=== PATIENT | male | born 1945 | race Two or more races ===

== ENCOUNTER 2023-01-01 06:45 | Day surgery (SDC) | payer OTHER ==
[~2023-01-01] VITALS: Ht 182.9 cm; Wt 94.3 kg
[2023-01-01] VITALS (7 sets, daily range): BP systolic 115–175; BP diastolic 69–85; PULSE 57–63; RESP 14–16; TEMP 98; O2SAT 93–95
[~2023-01-01 06:45] MED LIST: ASPI325T4 PO; LOSA25TA15 PO; METF-370 PO
[2023-01-01] MEDS ORDERED: LIDOCAINE 2%HCL (LOCAL ANESTH.) INJ 20ML MDV ONE (07:41)
[2023-01-01] MEDS ORDERED: IODIXANOL 320MG/ML 100ML BTL IV ONE (07:41)
[2023-01-01] MEDS ORDERED: ANGIOMAX 250 MG VIAL IV ONE (07:55)
[2023-01-01] MEDS ORDERED: fentaNYL CITRATE 100 MCG/2 ML VL ONE (07:55)
[2023-01-01] MEDS ORDERED: MIDAZOLAM HCL 2MG/2ML 2ml VIAL (1mg/ml) ONE (07:55)
[2023-01-01] MEDS ORDERED: VERAPAMIL 2.5MG/ML INJ 2ML VIAL IV ONE (07:55)
[2023-01-01] MEDS ORDERED: SODIUM CHL 0.9% 0 ML ONE (07:56)
[2023-01-01] MEDS ORDERED: NITROGLYCERIN 5MG/ML 10ML VIAL IV ONE (08:00)
[2023-01-01] MEDS ORDERED: HEPARIN SODIUM (PORCINE) 5000 UNITS/ML 1ML VIAL ONE (08:34)
== END 2023-01-01 10:45 | disposition home or self-care (01) ==
LOC: CATH 06:45
PROVIDERS: ATTEND Internal Medicine
DX: R94.39 Abnormal result of other cardiovascular function study (principal); R07.9 Chest pain, unspecified; I25.118 Atherosclerotic heart disease of native coronary artery with other forms of angina pectoris; I10 Essential (primary) hypertension; E78.5 Hyperlipidemia, unspecified; Z79.899 Other long term (current) drug therapy
CPT/HCPCS: 93005; 93458; C1725; C1894; J1644; J2250; J3010; J3490; J7030; Q9967; 99152

== ENCOUNTER 2025-02-18 23:18 | Inpatient (IN) | payer OTHER ==
[~2025-02-18] VITALS: Ht 182.9 cm; Wt 94.1 kg
[~2025-02-18 23:18] MED LIST changes: -ASPI325T4 PO; +ASPI325T6 PO; +LOSA-533 PO; -LOSA25TA15 PO
--- NOTE | 2025-02-18 23:39 | ED.PDOC ---
HPI Comments 79 year old male presents to the ED via EMS with a chief compliant of chest pain onset 2 days. Patient states he had been experiencing chest pain for the past 2 days, went to [facility], troponin levels were elevated, last trop was 1.11. Patient states he was experiencing chest pain,poor appetite, shortness of breath. Denies fever, chills, cough, nausea, vomiting, diarrhea, headache, dizziness, blurred vision. No other symptoms or modifying factors present at this time. Time Seen by MD: 23:30 Reviewed Notes: Medications, Allergies Allergies: Uncoded Allergies: NONE (Allergy, Unknown, 12/29/22) Home Meds Reported Medications Losartan Potassium (Losartan Potassium) 25 Mg Tab, 25 MG PO BID for htn for 30 Days, MG 12/29/22 Aspirin (Aspirin) 325 Mg Tab, 325 MG PO DAILY, MG 12/29/22 Metformin Hydrochloride (Metformin Hcl) 500 Mg Tab, 500 MG PO IBID for DIABETES for 30 Days, MG 12/29/22 Information Source: Patient, Transfer Record, Emergency Med Personnel Mode of Arrival: EMS Severity: Moderate Timing: Hours Duration: Since onset Prehospital treatment: None Location: Chest (L) Radiation: No Radiation Quality: Sharp Onset: At Rest Modifying Factors: Nothing Associated Signs and Symptoms: SOB Past Medical History PAST MEDICAL HISTORY: Denies Surgical History: Denies all surgeries Family History Family History: Reviewed,noncontributory to illness, No family hx of Cancer, No family hx of DM, No family hx of Heart roby, No family hx of HTN, No family hx ofKidney roby, No family hx of Liver roby, No family hx of Lung roby, No family hx of Stroke Social History Smoker: Non-Smoker Alcohol: Denies ETOH Use Drugs: Denies Drug Use Lives In: Home Constitutional: denies: chills, diaphoresis, fatigue, fever, malaise, sweats, weakness, others EENTM: denies: blurred vision, double vision, ear bleeding, ear discharge, ear drainage, ear pain, ear ringing, eye pain, eye redness, hearing loss, mouth pain, mouth swelling, nasal discharge, nose bleeding, nose congestion, nose pain, photophobia, tearing, throat pain, throat swelling, voice changes, others Respiratory: denies: cough, hemoptysis, orthopnea, SOB at rest, shortness of breath, SOB with excertion, stridor, wheezing, others Cardiovascular: reports: chest pain; denies: dizzy spells, diaphoresis, Dyspnea on exertion, edema, irregular heart beat, left arm pain, lightheadedness, palpitations, PND, syncope, others Gastrointestinal: denies: abdomen distended, abdominal pain, blood streaked bowels, constipated, diarrhea, dysphagia, difficulty swallowing, hematemesis, melena, nausea, poor appetite, poor fluid intake, rectal bleeding, rectal pain, vomiting, others Genitourinary: denies: burning, dysuria, flank pain, frequency, hematuria, incontinence, penile discharge, penile sore, pain, testicle pain, testicle swelling, urgency, others Neurological: denies: dizziness, fainting, headache, left sided numbness, left sided weakness, numbness, paresthesia, pre-existing deficit, right sided numbness, right sided weakness, seizure, speech problems, tingling, tremors, weakness, others Musculoskeletal: denies: back pain, gout, joint pain, joint swelling, muscle pain, muscle stiffness, neck pain, others Integumetry: denies: bruises, change in color, change in hair/nails, dryness, laceration, lesions, lumps, rash, wounds, others Allergic/Immunocompromised: denies: Difficulty Healing, Frequent Infections, Hives, Itching, others Hematologic/Lymphatic: denies: anemia, blood clots, easy bleeding, easy bruising, swollen glands, others Endocrine: denies: excessive hunger, excessive sweating, excessive thirst, excessive urination, flushing, intolerance to cold, intolerance to heat, unexplained weight gain, unexplained weight loss, others Psychiatric: denies: anxiety, bipolar disorder, depression, hopeless, panic disorder, schizophrenia, sleepless, suicidal, others All Other Systems: Reviewed and Negative Physical Exam General Appearance: Normal HEENT: Normal ENT Inspection, Pharynx Normal, TMs Normal Neck: Full Range of Motion, Non-Tender, Normal, Normal Inspection Respiratory: Chest Non-Tender, Lungs Clear, No Accessory Muscle Use, No Respiratory Distress, Normal Breath Sounds Cardiovascular: No Edema, No JVD, No Murmur, No Gallop, Normal Peripheral Pulses, Regular Rate/Rhythm Breast Exam: Deferred Gastrointestinal: No Organomegaly, Non Tender, No Pulsatile Mass, Normal Bowel Sounds, Soft Genitalia: Deferred Pelvic: Deferred Rectal: Deferred Extremities: No calf tenderness, Normal capillary refill, Normal inspection, Normal range of motion, Non-tender, No pedal edema Musculoskeletal : Apperance: Normal Neurologic: Alert, attorney II-XII nml as Tested, No Motor Deficits, Normal Affect, Normal Mood, No Sensory Deficits Cerebellar Function: Normal Reflexes: Normal Skin: Dry, Normal Color, Warm Lymphatic: No Adenopathy Was a procedure done? Was a procedure done?: No CP Differential Dx Differential Diagnosis: A-fib, A-Flutter, Angina, Electrolyte Disorder, Heart Failure, Hyperthyroidism, Hyperventilation, Hypoxia, MAT, ME, PAC's, Ventricular Dysrhythmia, V-Fib, V-Tach, Other X-Ray, Labs, Meds, VS Vital Signs Date Time Temp Pulse Resp B/P (MAP) Pulse Ox O2 Delivery O2 Flow Rate FiO2 02/19/25 00:30 Room Air* 0 21 02/19/25 00:30 98.4 70 17 138/74 (95) 95 98.4 02/18/25 23:59 70 02/18/25 23:18 98.4 14 18 113/64 98 98.4 Lab Test 02/19/25 02:29 02/19/25 00:29 02/18/25 23:55 02/18/25 23:27 Range/Units Troponin I High Sensitivity Pending 119 *H 129 *H </=54 ng/L Urine Color Light-orange Yellow Urine Clarity Turbid H Clear Urine pH 5.5 5.0-9.0 Urine Specific [place] 1.023 1.001-1.035 Urine Protein 1+ H Negative Urine Ketones Negative Negative Urine Blood 3+ H Negative /uL Urine Nitrite Negative Negative Urine Bilirubin Negative Negative Urine Urobilinogen Normal Negative mg/dL Urine Leukocyte Esterase 2+ Negative /uL Urine RBC 1 0 - 3 /hpf Urine Microscopic WBC 114 H 0-3 /HPF Urine Squamous Epithelial Cells Few <5 /hpf Urine Bacteria Many H None Seen /hpf Urine Mucus Few None Seen Urine Glucose Normal Normal mg/dL White Blood Count 7.5 4.4-10.8 10^3/uL Red Blood Count 5.52 4.5-5.90 10^6/uL Hemoglobin 14.0 13.5-17.5 g/dL Hematocrit 42.7 41.0-53.0 % Mean Corpuscular Volume 77.2 L 80.0-100.0 fL Mean Corpuscular Hemoglobin 25.3 L 28.0-32.0 pg Mean Corpuscular Hemoglobin Concent 32.7 32.0-36.0 g/dL Red Cell Distribution Width 16.1 H 11.8-14.3 % Platelet Count 133 L 140-450 10^3/uL Mean Platelet Volume 9.4 6.9-10.8 fL Neutrophils (%) (Auto) 88.6 H 37.0-80.0 % Lymphocytes (%) (Auto) 5.6 L 10.0-50.0 % Monocytes (%) (Auto) 5.7 0.0-12.0 % Eosinophils (%) (Auto) 0.0 0.0-7.0 % Basophils (%) (Auto) 0.1 0.0-2.0 % Neutrophils # (Auto) 6.7 1.6-8.6 10 ^3/uL Lymphocytes # (Auto) 0.4 0.4-5.4 10 ^3/uL Monocytes # (Auto) 0.4 0-1.3 10 ^3/uL Eosinophils # (Auto) 0 0-0.8 10 ^3/uL Basophils # (Auto) 0 0-0.2 10 ^3/uL Nucleated Red Blood Cells 0.0 % Sodium Level 139 136-145 mmol/L Potassium Level 4.1 3.5-5.1 mmol/L Chloride Level 104 98-107 mmol/L Carbon Dioxide Level 27 20-31 mmol/L Anion Gap 8 5-15 Blood Urea Nitrogen 15 9-23 mg/dL Creatinine 1.01 0.700-1.30 mg/dL Glomerular Filtration Rate Calc 76 >90 mL/min BUN/Creatinine Ratio 14.9 10.0-20.0 Serum Glucose 130 H 74-106 mg/dL Lactic Acid Level 1.3 0.4-2.0 mmol/L Calcium Level 9.4 8.7-10.4 mg/dL Total Bilirubin 0.4 0.2-1.0 mg/dL Aspartate Amino Transferase (AST) 179 H 13-40 U/L Alanine Aminotransferase (ALT) 41 H 7-40 U/L Alkaline Phosphatase 86 46-116 U/L Total Protein 7.2 5.7-8.2 g/dL Albumin 4.1 3.2-4.8 g/dL Time of 1ST Reevaluation: 00:00 Reevaluation 1ST: Unchanged Patient Education/Counseling: Diagnosis, Treatment, Prognosis Family Education/Counseling: No Family Present SEPSIS Sepsis Screen Physician Orders Blood Culture (02/18/25 23:26) Chest Portable (02/18/25 23:26) Troponin-I Hs (02/19/25 02:26) Ceftriaxone Ivpb Rocephin (02/19/25 03:00) Vital Signs Date Time Temp Pulse Resp B/P (MAP) Pulse Ox O2 Delivery O2 Flow Rate FiO2 02/19/25 00:30 Room Air* 0 21 02/19/25 00:30 98.4 70 17 138/74 (95) 95 98.4 02/18/25 23:59 70 02/18/25 23:18 98.4 14 18 113/64 98 98.4 Laboratory Tests Test 02/18/25 23:27 Lactic Acid Level 1.3 mmol/L (0.4-2.0) White Blood Count 7.5 10^3/uL (4.4-10.8) Departure 1 Departure Time of Disposition: 02:48 Impression: Primary Impression: Chest pain Additional Impressions: Generalized weakness Urinary tract infection Acute coronary syndrome Disposition: ADMITTED INPATIENT Admit to: [facility] Condition: Guarded Discharged With: Self Comments 79-year-old male transferred from [facility] due to elevated troponin. I reviewed his lab results. His troponin is elevated. It looks like he has a urine infection. Patient received aspirin in [place]. I ordered some Rocephin antibiotics. Patient will need to be admitted for supportive care and further workup. Critical Care Note Critical Care Time?: Yes (35 min-critical care time only) Critical care comment: Total critical care time: Approximately 36 minutes Due to a high probability of clinically significant, life threatening deterioration, the patient required my highest level of preparedness to intervene emergently and I personally spent this critical care time directly and personally managing the patient. This critical care time included obtaining a history; examining the patient; pulse oximetry; ordering and review of studies; arranging urgent treatment with development of a management plan; evaluation of patient's response to treatment; frequent reassessment; and, discussions with other providers. This critical care time was performed to assess and manage the high probability of imminent, life-threatening deterioration that could result in multi-organ failure. It was exclusive of separately billable procedures and treating other patients. Stability Stability form required: No Heart Score Heart Score: Heart Score Response (Comments) Value History Highly Suspicious 2 EKG Repolarization Disturb 1 Age >65 2 Risk Factors >3 or Hx ASHD 2 Troponin >3 x's Normal limit 2 Total 9 I personally scribed for NEGRA ROCHA MD ([email or web address]) on 02/18/25 at 23:39. Electronically submitted by Kenna Thomas ([email or web address]). NEGRA ROCHA MD Feb 18, 2025 23:39
[2025-02-18 23:57] LABS: Hematocrit 42.7 % (41.0-53.0); Hemoglobin 14.0 g/dL (13.5-17.5); Mean Corpuscular Hemoglobin 25.3 pg (28.0-32.0); Mean Corpuscular Volume 77.2 fL (80.0-100.0); Nucleated Red Blood Cells % 0.0 %
[2025-02-19] VITALS (8 sets, daily range): BP systolic 106–135; BP diastolic 74–83; PULSE 68–82; RESP 17–18; TEMP 97.7–97.9; O2SAT 95–96
--- NOTE | 2025-02-19 00:01 | ECG ---
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
[2025-02-19 00:11] LABS: Albumin 4.1 g/dL (3.2-4.8); Alkaline Phosphatase 86 U/L (46-116); Anion Gap 8 (5-15); BUN/Creatinine Ratio 14.9 (10.0-20.0); Bilirubin, Total 0.4 mg/dL (0.2-1.0); Blood Urea Nitrogen 15 mg/dL (9-23); Calcium 9.4 mg/dL (8.7-10.4); Carbon Dioxide 27 mmol/L (20-31); Chloride 104 mmol/L (98-107); Potassium 4.1 mmol/L (3.5-5.1); Sodium 139 mmol/L (136-145); Total Protein 7.2 g/dL (5.7-8.2)
[2025-02-19 00:13] LABS: Alanine Aminotransferase 41 U/L (7-40); Glucose 130 mg/dL (74-106)
[2025-02-19 01:16] LABS: Urine Protein, UAD 1+ (Negative)
--- NOTE | 2025-02-19 01:59 | DVH ---
CHEST RADIOGRAPH Indication: SOB Technique: Single frontal view of the chest was obtained COMPARISON: XR CHEST 1 VIEW on DOS: 02/18/25, CT CHEST WO/W on DOS: 12/23/24, XR CHEST 2 VIEWS on DOS: 07/15/24, XR CHEST 2 VIEWS on DOS: 02/09/23, CH-CHEST 2V on DOS: 06/17/19 FINDINGS: Lungs and pleural spaces are clear. Cardiac silhouette and butch are within normal limits. Bones and soft tissues demonstrate no significant abnormality. IMPRESSION: No acute disease.
[2025-02-19] MEDS ORDERED: HEPARIN SODIUM (PORCINE) 5000 UNITS/ML 1ML VIAL IV ONE (04:00)
[2025-02-19] MEDS ORDERED: HEPARIN DRIP/D5W 100UNITS/ML 250 ML IV SCH (04:00)
[2025-02-19] MEDS ORDERED: NITROGLYCERIN 0.4 MG SL TAB SL PRN (04:00)
[2025-02-19] MEDS ORDERED: HYDROcodone-ACET 5/325MG TAB PO PRN (04:00)
[2025-02-19] MEDS ORDERED: ONDANSETRON HCL 4 MG/2 ML VIAL IV PRN (04:00)
[2025-02-19] MEDS ORDERED: MORPHINE SULFATE INJ 2 MG/ml SYRG IV PRN (04:00)
[2025-02-19] MEDS: NITROGLYCERIN 0.4 MG SL TAB SL ONE (04:03)
[2025-02-19] MEDS: MORPHINE SULFATE 4 MG/ML SYR/VIAL IV ONE (04:04)
--- NOTE | 2025-02-19 04:12 | DVHHP2 ---
Admitting Diagnosis: NSTEMI History of Present Illness History Source: Patient Exam Limitations: No limitations HPI Mr. Gerardo Elise is a 79 year old male with a history of hypertension, DM type 2 who presents as a transfer from [facility] with a chief complaint of chest pain onset 2 days. Patient states he had been initially experiencing generalized weakness , loss of appetite and intermittent right side chest pain radiating to right shoulder for the past 2 days, reports he went to [facility], troponin levels were elevated, last trop was 1.11. Patient endorses mild exertional dyspnea. Denies chest pain, dyspnea, fever, chills, cough, nausea, vomiting, diarrhea, headache, dizziness, blurred vision. No other symptoms or modifying factors present at this time. Patient admitted for further evaluation. Home Meds Reported Medications Bisoprolol Fumarate (Bisoprolol Fumarate) 5 Mg Tab, 10 MG PO DAILY, TAB 02/19/25 Finasteride (Finasteride) 5 Mg Tab, 1 TAB PO DAILY, #30 TAB 11 Refills 02/19/25 Donepezil Hydrochloride (Aricept) 5 Mg Tab, 5 MG PO, TAB 02/19/25 Tamsulosin Hcl (Flomax) 0.4 Mg Cap, 1 CAP PO DAILY, #30 CAP 11 Refills 02/19/25 Rosuvastatin Calcium (Crestor) 5 Mg Tab, 1 TAB PO DAILY, #30 TAB 5 Refills 02/19/25 Albuterol Sulfate (VENTOLIN MDI) 90 Mcg Ih, 90 MCG IN, INHALER 02/19/25 Metformin HCl (Metformin Hydrochloride) 1,000 Mg Tab, 1000 MG PO BID, TAB 02/19/25 Losartan Potassium (Cozaar) 100 Mg Tab, 1 TAB PO DAILY, #30 TAB 5 Refills 02/19/25 Loratadine (Claritin) 10 Mg Tab, 1 TAB PO DAILY, #30 TAB 5 Refills 02/19/25 Losartan Potassium (Losartan Potassium) 25 Mg Tab, 25 MG PO BID for htn for 30 Days, MG 12/29/22 Aspirin (Aspirin) 325 Mg Tab, 325 MG PO DAILY, MG 12/29/22 Metformin Hydrochloride (Metformin Hcl) 500 Mg Tab, 500 MG PO IBID for DIABETES for 30 Days, MG 12/29/22 Past Medical History Cardiac: HTN Pulmonary: No pertinent Hx Central Nervous System: No pertinent Hx GI: No pertinent Hx Hemotology/Oncology: No pertinent Hx Hepatobiliary: No pertinent Hx Psychiatric: No pertinent Hx Musculoskeletal: No pertinent Hx Rheumotologic: No pertinent Hx Infectious Disease: No peritnent Hx ENT: No pertinent Hx Renal/: No pertinent Hx Endocrine: NIDDM Dermatology: No pertinent Hx Smoker: No Hx (Negative) Alocohol: None Drugs: None Lives with: With family Domestic Violence: Neg Review of Systems Constitutional: Weakness (generalized ) Ears, Nose, & Throat: No symptom reported Eyes: No symptom reported Pulmonary/Respiratory: Dyspnea Cardiovascular: Chest Pain Gastrointestinal: No symptom reported Genitourinary: No symptom reported Musculoskeletal: No symptom reported Skin: No symptom reported Psychiatric: No symptom reported Endocrine: No symptom reported Hemotologic/Lymphatic: No symptom reported H&P Exam Vital Signs Vital Signs Date Time Temp Pulse Resp B/P (MAP) Pulse Ox O2 Delivery O2 Flow Rate FiO2 02/19/25 04:04 74 12 129/71 02/19/25 02:00 94 02/19/25 00:30 Room Air* 0 21 02/19/25 00:30 98.4 98.4 General Appeara: Well developed, Well nourished, Normal Appearance Head Exam: Normal inspection Neck Exam: Normal inspection, Non-tender, Normal alignment Eye Exam: bilateral eye Normal inspection, bilateral eye PERRL, bilateral eye EOMI Ear Exam: bilateral ear Auricle normal Nasal Exam: Normal inspection Mouth: Normal Inspection Pulmonary/Respiratory: Normal inspection, Normal breath sounds, Chest non- tender, Lungs clear Cardiovascular/Chest: Normal inspection, Regular rate, Normal Rhythm Peripheral Pulses: 2+ dorsalis pedis (R), 2+ dorsalis pedis (L), 2+ Radial (R), 2+ Radial (L) Abdominal Exam: Normal bowel sounds, Soft, No tenderness Legs: bilateral leg non-tender, bilateral leg normal inspection, bilateral leg normal range of motion RADIOLOGICAL TECHNICIAN Exam: Normal hearing, Normal speech, PERRL Motor/Sensory: Normal sensory function, Normal motor function Neuro/Mental St: Alert, Oriented Appearance: Appropriate appearance, Appropriate insight Eye contact/ Speech: Cooperative, Good eye contact, Normal speech Thoughts/Psych: Normal thought pattern Skin Exam: Normal inspection, Normal color, Warm/dry SEPSIS Sepsis Screen Date sepsis recognized/suspect: Feb 19, 2025 Time Sepsis recognized/suspect: 0030 Recent Procedure: No On Antibiotic Therapy: No Respiratory Rate >20: No Heart Rate >90: No Temp<36 C (96.8 F) or >38.3 C: No SBP <90 or MAP <65 mmHG: No New Acute Mental Status Change: No Is the patient on CPAP, BIPAP,: No Physician Orders Blood Culture (02/18/25 23:26) Chest Portable (02/18/25 23:26) Platelet Monitoring (02/19/25 03:55) Heparin Per Standardized Proce (02/19/25 03:55) Discontinue All Im Injections (02/19/25 03:55) PTPTT (02/19/25 03:55) Complete Blood Count (02/19/25 03:55) Heparin Sodium (Porcine) (02/19/25 04:00) Heparin Drip/D5w 100units/Ml (02/19/25 04:00) Stat Ekg For Chest Pain (02/19/25 03:55) Ondansetron Hcl (Zofran) (02/19/25 04:00) Hydrocodone-Acet 5/325mg Tab (Gepp 5/32 (02/19/25 04:00) Acetaminophen Tablet (Tylenol Tablet) (02/19/25 04:00) Pantoprazole (Protonix) (02/19/25 10:00) Atorvastatin (Lipitor) (02/19/25 22:00) Aspirin Tablet (02/19/25 10:00) Ceftriaxone 1gm/50ml (Rocephin) (02/19/25 10:00) Admit (02/19/25 03:55) * Cardiology Consult (02/19/25 03:55) Echo 2d Mode Cardiac Dop (02/19/25 03:55) Comprehensive Metabolic Panel (02/20/25 05:00) Comprehensive Metabolic Panel (02/21/25 05:00) Comprehensive Metabolic Panel (02/22/25 05:00) Complete Blood Count (02/20/25 05:00) Complete Blood Count (02/21/25 05:00) Complete Blood Count (02/22/25 05:00) Nitroglycerin Sublingual (Ntrostat Subli (02/19/25 04:00) Morphine Sulfate Injection (02/19/25 04:00) Stat Ekg For Chest Pain (02/19/25 03:55) Notify Of Changes From Base (02/19/25 03:55) Bad Credit Collector For 24 Hours (02/19/25 03:55) Emergency Dysrhythmia Protocol (02/19/25 03:55) Rhythm Strips Once Every Shift (02/19/25 03:55) Oxygen By Nasal Cannula (02/19/25 03:55) Troponin-I Hs (02/19/25 06:00) Troponin-I Hs (02/19/25 14:00) Troponin-I Hs (02/19/25 22:00) Vital Signs Date Time Temp Pulse Resp B/P (MAP) Pulse Ox O2 Delivery O2 Flow Rate FiO2 02/19/25 04:04 74 12 129/71 02/19/25 04:03 129/71 02/19/25 02:00 76 17 130/61 (84) 94 02/19/25 00:30 Room Air* 0 21 02/19/25 00:30 98.4 70 17 138/74 (95) 95 98.4 02/18/25 23:59 70 02/18/25 23:18 98.4 14 18 113/64 98 98.4 Laboratory Tests Test 02/18/25 23:27 Lactic Acid Level 1.3 mmol/L (0.4-2.0) White Blood Count 7.5 10^3/uL (4.4-10.8) Medications Medications Dose Ordered Sig/Ann Route Start Time Stop Time Status Last Admin Dose Admin Ceftriaxone Sodium 50 ml @ 100 mls/hr ONCE ONCE IV 02/19/25 03:00 02/19/25 03:29 DC 02/19/25 03:14 100 MLS/HR Morphine Sulfate 4 mg ONCE ONCE IV 02/19/25 04:00 02/19/25 04:01 DC 02/19/25 04:04 4 MG Nitroglycerin 0.4 mg ONCE ONCE SL 02/19/25 04:00 02/19/25 04:01 DC 02/19/25 04:03 0.4 MG Labs/Xrays Labs Test 02/19/25 02:29 02/18/25 23:55 02/18/25 23:27 Range/Units Troponin I High Sensitivity 114 *H </=54 ng/L Urine Color Light-orange Yellow Urine Clarity Turbid H Clear Urine pH 5.5 5.0-9.0 Urine Specific [place] 1.023 1.001-1.035 Urine Protein 1+ H Negative Urine Ketones Negative Negative Urine Blood 3+ H Negative /uL Urine Nitrite Negative Negative Urine Bilirubin Negative Negative Urine Urobilinogen Normal Negative mg/dL Urine Leukocyte Esterase 2+ Negative /uL Urine RBC 1 0 - 3 /hpf Urine Microscopic WBC 114 H 0-3 /HPF Urine Squamous Epithelial Cells Few <5 /hpf Urine Bacteria Many H None Seen /hpf Urine Mucus Few None Seen Urine Glucose Normal Normal mg/dL White Blood Count 7.5 4.4-10.8 10^3/uL Red Blood Count 5.52 4.5-5.90 10^6/uL Hemoglobin 14.0 13.5-17.5 g/dL Hematocrit 42.7 41.0-53.0 % Mean Corpuscular Volume 77.2 L 80.0-100.0 fL Mean Corpuscular Hemoglobin 25.3 L 28.0-32.0 pg Mean Corpuscular Hemoglobin Concent 32.7 32.0-36.0 g/dL Red Cell Distribution Width 16.1 H 11.8-14.3 % Platelet Count 133 L 140-450 10^3/uL Mean Platelet Volume 9.4 6.9-10.8 fL Neutrophils (%) (Auto) 88.6 H 37.0-80.0 % Lymphocytes (%) (Auto) 5.6 L 10.0-50.0 % Monocytes (%) (Auto) 5.7 0.0-12.0 % Eosinophils (%) (Auto) 0.0 0.0-7.0 % Basophils (%) (Auto) 0.1 0.0-2.0 % Neutrophils # (Auto) 6.7 1.6-8.6 10 ^3/uL Lymphocytes # (Auto) 0.4 0.4-5.4 10 ^3/uL Monocytes # (Auto) 0.4 0-1.3 10 ^3/uL Eosinophils # (Auto) 0 0-0.8 10 ^3/uL Basophils # (Auto) 0 0-0.2 10 ^3/uL Nucleated Red Blood Cells 0.0 % Sodium Level 139 136-145 mmol/L Potassium Level 4.1 3.5-5.1 mmol/L Chloride Level 104 98-107 mmol/L Carbon Dioxide Level 27 20-31 mmol/L Anion Gap 8 5-15 Blood Urea Nitrogen 15 9-23 mg/dL Creatinine 1.01 0.700-1.30 mg/dL Glomerular Filtration Rate Calc 76 >90 mL/min BUN/Creatinine Ratio 14.9 10.0-20.0 Serum Glucose 130 H 74-106 mg/dL Lactic Acid Level 1.3 0.4-2.0 mmol/L Calcium Level 9.4 8.7-10.4 mg/dL Total Bilirubin 0.4 0.2-1.0 mg/dL Aspartate Amino Transferase (AST) 179 H 13-40 U/L Alanine Aminotransferase (ALT) 41 H 7-40 U/L Alkaline Phosphatase 86 46-116 U/L Total Protein 7.2 5.7-8.2 g/dL Albumin 4.1 3.2-4.8 g/dL Assessment/Plan Problem List: (1) NSTEMI (non-ST elevated myocardial infarction) (2) Acute coronary syndrome (3) Chest pain (4) Urinary tract infection Plan This is a 79 yo male with known history of hypertension, DM type 2 who presents to the hospital with chest pain , patient is a transfer from [facility] for elevated troponin levels, patient found to have 1. Chest pain r/o ACS 2. Elevated troponin 3. Urinary tract infection 4. Transaminitis 5. Hypertension 6. DM type 2 Plan Admit Telemetry Cardiology consultation, 2D echocardiogram, serial troponin levels, ASA, Statin Lovenox 1mg/kg SC every 12 hours IV antibiotic Ceftriaxone, urine culture, BC x2 Monitor CMP , CBC, PTT Glucose monitoring ac & hs coverage with low dose insulin sliding scale PT evaluation Discussed all above with patient who verbalizes agreement and understanding of care plan. All questions were answered. Discussed with supervising MD. Plan discussed with: Patient, Other Code Visit Code Visit Total Time (mins): 45 Additional Comments Additional Comments Additional Comments 79-year-old male with a known history of diabetes mellitus type 2, hypertension who presented to the hospital at [facility] with a right-sided chest pain generalized weakness loss of appetite and lethargic, blood in the urine found to have 1. Elevated troponin rule out acute OR 2. Generalized weakness/lethargy/loss of appetite with a subjective complaint of blood in the urine suspected UTI rule out any urinary bladder/renal mass 3. Acute cystitis with hematuria 5. Diabetes mellitus type 2 6. Transaminitis -aspirin, statin, 2D echo cardiology consultation IV antibiotics, follow up urine culture, follow up CT abdomen and pelvis to rule out any urinary bladder mass. MIRANDA PHILLIPS Feb 19, 2025 04:12 DEEPA PEREZ MD Feb 19, 2025 13:32
[2025-02-19 04:38] LABS: INR 1.17 (0.9-1.15); Partial Thromboplastin Time 25.1 SEC (24.5-34.5); Prothrombin Time 12.2 sec (9.3-11.8)
[2025-02-19 04:48] LABS: Triglycerides 73 mg/dL (< 150)
[2025-02-19 04:50] LABS: Cholesterol 150 mg/dL (< 200); HDL Cholesterol 46 mg/dL (40-59)
[2025-02-19] MEDS: ENOXAPARIN SOD 100 MG/1 ML SYRINGE SC SCH (04:51)
[2025-02-19] MEDS ORDERED: DEXTROSE (50%) 50ML SYRG IV PRN (05:45)
[2025-02-19] MEDS: InsuLIN REG 1unit/0.01ml Soln (100units/ml) SC SCH (06:11)
[2025-02-19] MEDS: ACCU-CHEK COMFORT CURVE STRIP VI SCH (06:12)
[2025-02-19 07:38] LABS: Triglycerides 74 mg/dL (< 150)
[2025-02-19 07:40] LABS: Cholesterol 149 mg/dL (< 200); HDL Cholesterol 46 mg/dL (40-59)
[2025-02-19] MEDS: PANTOPRAZOLE 40 MG/10 ML VIAL INJ IV SCH (09:46)
[2025-02-19] MEDS ORDERED: LORA-622 PO (10:17)
[2025-02-19] MEDS ORDERED: LOSA100T14 PO (10:18)
[2025-02-19] MEDS ORDERED: ALBUAER3 IN (10:25)
[2025-02-19] MEDS ORDERED: METF-929 PO (10:25)
[2025-02-19] MEDS ORDERED: ROSU5TAB5 PO (10:37)
[2025-02-19] MEDS ORDERED: DONE5TAB11 PO (10:41)
[2025-02-19] MEDS ORDERED: TAMS-35 PO (10:41)
[2025-02-19] MEDS ORDERED: FINA5TAB4 PO (10:43)
[2025-02-19] MEDS ORDERED: BISO5TAB44 PO (10:48)
--- NOTE | 2025-02-19 14:31 | DVH ---
EXAM: CT CT AB PEL WO CON-NO ORAL OR IV INDICATION: Hematuria TECHNIQUE: Volumetric multidetector CT images of the abdomen and pelvis were obtained without contrast. All CT scans at this facility use dose modulation, iterative reconstruction, and/or weight based dosing when appropriate to reduce radiation dose to as low as reasonably achievable. COMPARISON: CT CHEST WO/W on DOS: 12/23/24 FINDINGS: [LOWER CHEST]: The partially visualized lung bases are clear without a pleural effusion. The cardiac size is normal without pericardial effusion. calcific granulomas in bilateral lower lobes. [LIVER]: Liver calcifications. [GALLBLADDER AND BILIARY TREE]: No cholelithiasis. [SPLEEN]: Calcifications, which may be related to antecedent granulomatous infection. [PANCREAS]: Unremarkable. 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 [KIDNEYS]: No hydronephrosis. No nephroureterolithiasis. Benign appearing renal cysts, compatible with Bosniak type I cyst. No imaging follow-up required. [BLADDER]: Circumferential bladder wall thickening, which may be seen in the setting of acute versus chronic cystitis and correlate with urinalysis. [REPRODUCTIVE ORGANS]: Unremarkable. [BOWEL/MESENTERY]: Stomach is normal. No CT evidence of bowel obstruction. [id number] stool burden. Correlate for constipation. [ASCITES]: Absent [LYMPHADENOPATHY]: No pathologically enlarged lymph nodes by CT size criteria [VASCULATURE]: Infrarenal abdominal aortic aneurysm measuring up to 4.4 cm. Prominence of bilateral common iliac arteries measuring up to 1.9 of the right and 1.7 cm small in the left. [ABDOMINAL WALL]: Small fat containing left inguinal hernia [MUSCULOSKELETAL]: No acute fracture or aggressive focal osseous lesion. Multifocal degenerative change of the visualized spine. IMPRESSION: 1. No hydronephrosis or nephroureterolithiasis. 2. Circumferential bladder wall thickening and correlate with urinalysis for underlying acute versus chronic cystitis. 3. Infrarenal abdominal aortic aneurysm measuring up to 4.4 cm.
[2025-02-19] MEDS: ATORVASTATIN 20 MG TAB PO SCH (22:02)
[2025-02-20] VITALS (8 sets, daily range): BP systolic 123–151; BP diastolic 78–91; PULSE 71–91; RESP 16–19; TEMP 97.6–98.4; O2SAT 93–97
[2025-02-20] MEDS: ACETAMINOPHEN 325 MG TAB PO PRN (05:57)
[2025-02-20 06:23] LABS: Hematocrit 42.6 % (41.0-53.0); Hemoglobin 14.1 g/dL (13.5-17.5); Mean Corpuscular Hemoglobin 25.5 pg (28.0-32.0); Mean Corpuscular Volume 76.7 fL (80.0-100.0); Nucleated Red Blood Cells % 0.2 %
[2025-02-20 06:38] LABS: Albumin 3.9 g/dL (3.2-4.8); Alkaline Phosphatase 81 U/L (46-116); Anion Gap 9 (5-15); BUN/Creatinine Ratio 16.5 (10.0-20.0); Blood Urea Nitrogen 17 mg/dL (9-23); Calcium 8.9 mg/dL (8.7-10.4); Carbon Dioxide 30 mmol/L (20-31); Chloride 104 mmol/L (98-107); Potassium 3.7 mmol/L (3.5-5.1); Sodium 143 mmol/L (136-145); Total Protein 7.1 g/dL (5.7-8.2)
[2025-02-20 06:39] LABS: Bilirubin, Total 0.4 mg/dL (0.2-1.0)
[2025-02-20 06:40] LABS: Alanine Aminotransferase 67 U/L (7-40); Glucose 126 mg/dL (74-106)
--- NOTE | 2025-02-20 11:59 | DVHCONRES ---
Date Seen: Feb 20, 2025 Resident Creating Document: YASMINE REAL RESIDENT Referring Physician Dr. Hurst Reason for Consultation Elevated troponins and chest pain History of Present Illness DARRON OLIVER is a 79 years old male with a PMH of HTN, type 2 DM, GERD and CAD transferred from [facility] with the chief complaints of progressive chest pain for 2 days prior to admission. Patient reported that he has a long history of chest pain for 7 months that has progressed from occasional more frequent episodes. The pain is located right side which is pressure-like radiating to right shoulder and neck associated with chest soreness. Episodes began without any specific precipitating activity and last for few hours but no significant aggravating/relieving factors. Patient denies difficulty breathing, but admits having mild SOB on exertion attributed to suspected COPD. Patient reported he also having bad reflux. on arrival to [facility] troponins were elevated 129 > 119 > 114 > 106> 72 >52 and BNP was 205. Initial EKG showed T-wave changes but no significant ST elevation/depression. Reviewed old charts, the patient underwent left heart catheterization in December 2022, diagnosed with a mild CAD with 30% stenosis in mid RCA and mid LAD with a LVEF 70% PMH as above PSH: Angiogram in 2022 Family history: History of heart disease in father Social history: Lives at home. Former smoker quit in 2019 after smoking for 20 years less than half a pack per day. Denies alcohol, marijuana and other drug abuse Allergies: No known allergies Home medications: Metformin 500 mg, albuterol inhaler, losartan /HCTZ 100/12.5, rosuvastatin 5 mg, Flomax 0.4 mg, bisoprolol fumarate 10 mg, finasteride 5 mg, Aricept 5 mg, ROS: Patient seen and examined at the bedside. Patient is currently reporting having chest pain and mild shortness of breath which is improved since admission. Family History: Diabetes mellitus G8 MOTHER Allergies: Uncoded Allergies: NONE (Allergy, Unknown, 12/29/22) Home Meds Reported Medications Bisoprolol Fumarate (Bisoprolol Fumarate) 5 Mg Tab, 10 MG PO DAILY, TAB 02/19/25 Finasteride (Finasteride) 5 Mg Tab, 1 TAB PO DAILY, #30 TAB 11 Refills 02/19/25 Donepezil Hydrochloride (Aricept) 5 Mg Tab, 5 MG PO, TAB 02/19/25 Tamsulosin Hcl (Flomax) 0.4 Mg Cap, 1 CAP PO DAILY, #30 CAP 11 Refills 02/19/25 Rosuvastatin Calcium (Crestor) 5 Mg Tab, 1 TAB PO DAILY, #30 TAB 5 Refills 02/19/25 Albuterol Sulfate (VENTOLIN MDI) 90 Mcg Ih, 90 MCG IN, INHALER 02/19/25 Metformin HCl (Metformin Hydrochloride) 1,000 Mg Tab, 1000 MG PO BID, TAB 02/19/25 Losartan Potassium (Cozaar) 100 Mg Tab, 1 TAB PO DAILY, #30 TAB 5 Refills 02/19/25 Loratadine (Claritin) 10 Mg Tab, 1 TAB PO DAILY, #30 TAB 5 Refills 02/19/25 Losartan Potassium (Losartan Potassium) 25 Mg Tab, 25 MG PO BID for htn for 30 Days, MG 12/29/22 Aspirin (Aspirin) 325 Mg Tab, 325 MG PO DAILY, MG 12/29/22 Metformin Hydrochloride (Metformin Hcl) 500 Mg Tab, 500 MG PO IBID for DIABETES for 30 Days, MG 12/29/22 Current Medications Current Medications Medications (Trade) Dose Ordered Sig/Ann Route PRN Reason Start Time Stop Time Status Last Admin Atorvastatin Calcium (Lipitor) 40 mg HS PO 02/19/25 22:00 02/19/25 22:02 Ceftriaxone Sodium 50 ml @ 100 mls/hr DAILY IV 02/20/25 10:00 02/20/25 10:41 Vital Signs Vital Signs Date Time Temp Pulse Resp B/P (MAP) Pulse Ox O2 Delivery O2 Flow Rate FiO2 02/20/25 09:00 97.9 82 16 123/79 (94) 93 97.9 02/20/25 08:00 Room Air* 0 21 Physical Exam Pt is lying on bed General Appearance: Alert, Oriented X3, Cooperative, Not in acute distress HEENT: Atraumatic, Mucous membranes moist/pink Respiratory: Clear to auscultation, Normal air movement, Wheezing on expiration Cardiovascular: Regular rate, Normal S1, Normal S2, No murmurs Abdominal: Active bowel sounds, Soft, no distention, no tenderness Extremities: No edema, Normal pulses, No tenderness/swelling Skin: No Significant rash, except past surgical scars Neuro: Normal speech, sensorimotor deficits none Psych/Mental Status: Mental status NL, Mood NL Nurse was there as pyrometer operator during examination Labs/Diagnostic Data Labs Test 02/20/25 11:39 02/20/25 05:41 02/19/25 21:59 02/19/25 04:26 Range/Units POC Glucose 134 H 70-106 mg/dl White Blood Count 4.4 # 4.4-10.8 10^3/uL Red Blood Count 5.55 4.5-5.90 10^6/uL Hemoglobin 14.1 13.5-17.5 g/dL Hematocrit 42.6 41.0-53.0 % Mean Corpuscular Volume 76.7 L 80.0-100.0 fL Mean Corpuscular Hemoglobin 25.5 L 28.0-32.0 pg Mean Corpuscular Hemoglobin Concent 33.2 32.0-36.0 g/dL Red Cell Distribution Width 16.0 H 11.8-14.3 % Platelet Count 137 L 140-450 10^3/uL Mean Platelet Volume 9.2 6.9-10.8 fL Neutrophils (%) (Auto) 63.5 37.0-80.0 % Lymphocytes (%) (Auto) 21.9 10.0-50.0 % Monocytes (%) (Auto) 12.5 H 0.0-12.0 % Eosinophils (%) (Auto) 2.0 0.0-7.0 % Basophils (%) (Auto) 0.1 0.0-2.0 % Neutrophils # (Auto) 2.8 1.6-8.6 10 ^3/uL Lymphocytes # (Auto) 1.0 0.4-5.4 10 ^3/uL Monocytes # (Auto) 0.5 0-1.3 10 ^3/uL Eosinophils # (Auto) 0.1 0-0.8 10 ^3/uL Basophils # (Auto) 0 0-0.2 10 ^3/uL Nucleated Red Blood Cells 0.2 % Sodium Level 143 136-145 mmol/L Potassium Level 3.7 3.5-5.1 mmol/L Chloride Level 104 98-107 mmol/L Carbon Dioxide Level 30 20-31 mmol/L Anion Gap 9 5-15 Blood Urea Nitrogen 17 9-23 mg/dL Creatinine 1.03 0.700-1.30 mg/dL Glomerular Filtration Rate Calc 74 >90 mL/min BUN/Creatinine Ratio 16.5 10.0-20.0 Serum Glucose 126 H 74-106 mg/dL Calcium Level 8.9 8.7-10.4 mg/dL Total Bilirubin 0.4 0.2-1.0 mg/dL Aspartate Amino Transferase (AST) 263 H 13-40 U/L Alanine Aminotransferase (ALT) 67 H 7-40 U/L Alkaline Phosphatase 81 46-116 U/L Total Protein 7.1 5.7-8.2 g/dL Albumin 3.9 3.2-4.8 g/dL Troponin I High Sensitivity 52 </=54 ng/L Hemoglobin A1c 7.1 H <5.7 % A1C B-Type Natriuretic Peptide 205.66 0-100 pg/mL Triglycerides Level 74 < 150 mg/dL Cholesterol Level 149 < 200 mg/dL LDL Cholesterol 92 < 100 mg/dL HDL Cholesterol 46 40-59 mg/dL Test 02/19/25 02:29 02/18/25 23:55 02/18/25 23:27 Range/Units Prothrombin Time 12.2 H 9.3-11.8 sec Prothrombin Time INR 1.17 H 0.9-1.15 Activated Partial Thromboplast Time 25.1 24.5-34.5 SEC Urine Color Light-orange Yellow Urine Clarity Turbid H Clear Urine pH 5.5 5.0-9.0 Urine Specific [place] 1.023 1.001-1.035 Urine Protein 1+ H Negative Urine Ketones Negative Negative Urine Blood 3+ H Negative /uL Urine Nitrite Negative Negative Urine Bilirubin Negative Negative Urine Urobilinogen Normal Negative mg/dL Urine Leukocyte Esterase 2+ Negative /uL Urine RBC 1 0 - 3 /hpf Urine Microscopic WBC 114 H 0-3 /HPF Urine Squamous Epithelial Cells Few <5 /hpf Urine Bacteria Many H None Seen /hpf Urine Mucus Few None Seen Urine Glucose Normal Normal mg/dL Lactic Acid Level 1.3 0.4-2.0 mmol/L Microbiology Date/Time Source Procedure Growth Status 02/18/25 23:55 Voided Urine Urine Culture - Preliminary Resulted 02/18/25 23:39 Blood Blood Culture - Preliminary NO GROWTH AFTER 24 HOURS OF INCUBATION. Resulted Assessment Chest pain rule out ACS Rule out progressive CAD Rule out structural heart disease NSTEMI: Troponins trending up Hypertension Hyperlipidemia Acute complicated UTI Plan/Recommendation We will continue with the following plan/recommendations (): Echocardiogram to evaluate cardiac function Chest pain protocol HEART score: 5-6 points (Moderate score) Aspirin Lipid lowering agent BP control We will proceed with stress test and scheduled depend upon the availability Discussed with Plan discussed with: Patient Date of Service: Feb 20, 2025 Billing Provider: STEPHANIE FRANKS MD Common Visit Codes: [id number] CARE 30-74 MIN YASMINE REAL RESIDENT Feb 20, 2025 11:59
--- NOTE | 2025-02-20 16:10 | DVHPN2 ---
Subjective Overnight events noted. Patient currently denies any chest pain. Changes from previous H/P or p: No Changes Objective Vitals Vital Signs Date Time Temp Pulse Resp B/P (MAP) Pulse Ox O2 Delivery O2 Flow Rate FiO2 02/20/25 13:00 97.6 74 18 133/80 (97) 97 97.6 02/20/25 08:00 Room Air* 0 21 Intake/Output Intake and Output 02/20/25 07:00 Intake Total 1000 ml Output Total 1200 ml Balance -200 ml Intake Oral 1000 ml Output Urine Total 1200 ml Exam HEENT pupils are reactive Neck is supple CV is S1-S2 regular rate and rhythm Respiratory bilateral equal breath sounds. GI positive bowel sounds Extremity no pedal edema FIELD TECHNICAL SUPPORT CONSULTANT no motor deficit. Medications Current Medications Medications Dose Ordered Sig/Ann Route Start Time Stop Time Status Last Admin Dose Admin Ondansetron HCl 4 mg Q6HP PRN IV 02/19/25 04:00 Acetaminophen/ Hydrocodone Bitart 1 tab Q6HPRN PRN PO 02/19/25 04:00 Acetaminophen 650 mg Q6HPRN PRN PO 02/19/25 04:00 02/20/25 05:57 650 MG Pantoprazole Sodium 40 mg DAILY IV 02/19/25 10:00 02/20/25 10:44 40 MG Atorvastatin Calcium 40 mg HS PO 02/19/25 22:00 02/19/25 22:02 40 MG Aspirin 81 mg DAILY PO 02/19/25 10:00 02/20/25 10:46 81 MG Ceftriaxone Sodium 50 ml @ 100 mls/hr DAILY IV 02/20/25 10:00 02/20/25 10:41 100 MLS/HR Nitroglycerin 0.4 mg Q5MINP PRN SL 02/19/25 04:00 Morphine Sulfate 2 mg Q30M PRN IV 02/19/25 04:00 Diagnostic Test (Pha) 1 strip ACHS 02/19/25 07:00 02/20/25 11:47 1 STRIP Insulin Human Regular ACHS SC 02/19/25 07:00 02/20/25 11:47 2 UNITS Dextrose 50 ml UD PRN IV 02/19/25 05:45 Enoxaparin Sodium 40 mg DAILY SC 02/21/25 10:00 Laboratory Results Laboratory Tests 02/20/25 05:41 Chemistry Test 02/20/25 05:41 Albumin 3.9 g/dL (3.2-4.8) Calcium Level 8.9 mg/dL (8.7-10.4) Magnesium Level 2.3 mg/dL (1.6-2.6) Total Protein 7.1 g/dL (5.7-8.2) LFT Test 02/20/25 05:41 Alanine Aminotransferase (ALT) 67 U/L (7-40) H Alkaline Phosphatase 81 U/L (46-116) Aspartate Amino Transferase (AST) 263 U/L (13-40) H Total Bilirubin 0.4 mg/dL (0.2-1.0) HgA1c, TSH Test 02/20/25 05:41 Thyroid Stimulating Hormone (TSH) 1.67 uIU/mL (0.55-4.78) Urinalysis Test 02/18/25 23:55 Urine Color Light-orange (Yellow) Urine Clarity Turbid (Clear) H Urine pH 5.5 (5.0-9.0) Urine Specific [place] 1.023 (1.001-1.035) Urine Protein 1+ (Negative) H Urine Ketones Negative (Negative) Urine Blood 3+ /uL (Negative) H Urine Nitrite Negative (Negative) Urine Bilirubin Negative (Negative) Urine Urobilinogen Normal mg/dL (Negative) Urine Leukocyte Esterase 2+ /uL (Negative) Urine RBC 1 /hpf (0 - 3) Urine Microscopic WBC 114 /HPF (0-3) H Urine Squamous Epithelial Cells Few /hpf (<5) Urine Bacteria Many /hpf (None Seen) H Urine Mucus Few (None Seen) Urine Glucose Normal mg/dL (Normal) Microbiology Microbiology Date/Time Source Procedure Growth Status 02/18/25 23:55 Voided Urine Urine Culture - Preliminary Resulted 02/18/25 23:39 Blood Blood Culture - Preliminary NO GROWTH AFTER 24 HOURS OF INCUBATION. Resulted Assessment/Plan Assessment/Plan 79-year-old male with known history of hypertension, diabetes mellitus type 2 who initially presented to the hospital from [facility] with chest pain with elevated troponin found to have 1. Chest pain with elevated troponin suspect NSTEMI type 1 2. Diabetes mellitus type 2 next 3. Hypertension next 4. Transaminitis next 5. Urinary tract infection -2D echo, cardiology consultation, continue current medications. Plan discussed with: Patient, Spouse My Orders Orders - DEEPA PEREZ MD Procedure Category Date Status Time Npo Except For JESSICA 02/20/25 In Process Medications 09:59 Npo (Nothing By DIET 02/20/25 Transmitted Mouth) Diet Lunch * Cardiology Consult CONS 02/20/25 Transmitted 13:06 Date of Service: Feb 20, 2025 Billing Provider: DEEPA PEREZ MD Common Visit Codes: NOT BILLABLE DEEPA PEREZ MD Feb 20, 2025 16:10
[2025-02-21] VITALS (8 sets, daily range): BP systolic 134–158; BP diastolic 64–94; PULSE 74–84; RESP 16–18; TEMP 97.8–98.5; O2SAT 92–100
[2025-02-21 05:49] LABS: Hemoglobin 14.0 g/dL (13.5-17.5)
[2025-02-21 05:50] LABS: Hematocrit 42.3 % (41.0-53.0); Mean Corpuscular Hemoglobin 25.2 pg (28.0-32.0); Mean Corpuscular Volume 76.4 fL (80.0-100.0); Nucleated Red Blood Cells % 0.2 %
[2025-02-21 06:12] LABS: Albumin 3.9 g/dL (3.2-4.8); Alkaline Phosphatase 79 U/L (46-116); Anion Gap 8 (5-15); BUN/Creatinine Ratio 18.5 (10.0-20.0); Bilirubin, Total 0.3 mg/dL (0.2-1.0); Blood Urea Nitrogen 17 mg/dL (9-23); Calcium 8.9 mg/dL (8.7-10.4); Carbon Dioxide 28 mmol/L (20-31); Chloride 106 mmol/L (98-107); Potassium 3.9 mmol/L (3.5-5.1); Sodium 142 mmol/L (136-145); Total Protein 6.9 g/dL (5.7-8.2)
[2025-02-21 06:19] LABS: Alanine Aminotransferase 67 U/L (7-40); Glucose 124 mg/dL (74-106)
[2025-02-21] MEDS: ENOXAPARIN SOD 40 MG/0.4 ML SYRINGE SC SCH (09:33)
--- NOTE | 2025-02-21 11:14 | DVHPN2 ---
Progress Note - Dictate Date Seen: Feb 20, 2025 Medical Necessity Reason Pt with a Central, PICC or Fol: No Subjective PT TRANSFERRED FROM [facility] SECONDARY TO ELEVATED TROPONIN PEAK TROPONIN 110 HX OF HTN GERD TYPE II DM VASCULOPATHY NEPHROPATHY HX OF CAD EPISODE OF CHEST PAIN BUT MORE RIGHT SIDED C 2022 MILD DISEASE ECHO LVH EF >60% NO SEGMENTAL WALL MOTION ABNL UTI WITH BLADDER WALL THICKENING BY CT vital signs Vital Sign Date Time Temp Pulse Resp B/P (MAP) Pulse Ox O2 Delivery O2 Flow Rate FiO2 02/21/25 09:00 98.3 76 18 138/83 (101) 100 98.3 02/20/25 20:00 Room Air* 0 21 Total Intake and Output 02/20/25 02/20/25 02/21/25 15:00 23:00 07:00 Intake Total 50 ml 765 ml 650 ml Output Total 250 ml Balance 50 ml 765 ml 400 ml medications Current Medications Medications Dose Ordered Sig/Ann Route Start Time Stop Time Status Last Admin Dose Admin Ondansetron HCl 4 mg Q6HP PRN IV 02/19/25 04:00 Acetaminophen/ Hydrocodone Bitart 1 tab Q6HPRN PRN PO 02/19/25 04:00 Acetaminophen 650 mg Q6HPRN PRN PO 02/19/25 04:00 02/20/25 05:57 650 MG Pantoprazole Sodium 40 mg DAILY IV 02/19/25 10:00 02/21/25 09:33 40 MG Atorvastatin Calcium 40 mg HS PO 02/19/25 22:00 02/20/25 22:41 40 MG Aspirin 81 mg DAILY PO 02/19/25 10:00 02/21/25 09:31 81 MG Ceftriaxone Sodium 50 ml @ 100 mls/hr DAILY IV 02/20/25 10:00 02/21/25 09:30 100 MLS/HR Nitroglycerin 0.4 mg Q5MINP PRN SL 02/19/25 04:00 Morphine Sulfate 2 mg Q30M PRN IV 02/19/25 04:00 Diagnostic Test (Pha) 1 strip ACHS 02/19/25 07:00 02/21/25 06:02 1 STRIP Insulin Human Regular ACHS SC 02/19/25 07:00 02/20/25 11:47 2 UNITS Dextrose 50 ml UD PRN IV 02/19/25 05:45 Enoxaparin Sodium 40 mg DAILY SC 02/21/25 10:00 02/21/25 09:33 40 MG laboratory and microbiology Laboratory Tests 02/21/25 04:35 Test 02/21/25 04:35 Range/Units Serum Glucose 124 H 74-106 mg/dL Problem List PEAK TROPONIN 110 HX OF HTN GERD TYPE II DM VASCULOPATHY NEPHROPATHY HX OF CAD EPISODE OF CHEST PAIN BUT MORE RIGHT SIDED [facility] 2022 MILD DISEASE ECHO LVH EF >60% NO SEGMENTAL WALL MOTION ABNL UTI WITH BLADDER WALL THICKENING BY CT Assessment/Plan TREATMENT OF HTN DAPT FOR NOW SCHEDULE FOR CARDIOLITE ELEVATED TROPONIN SECONDARY TO DIASTOLIC DYSFUNCTION AGGRESSIVE BP MANAGEMENT BETA GERRY ANBULATE PT MAY DC HOME Plan discussed with: Patient STEPHANIE FRANKS MD Feb 21, 2025 11:14
--- NOTE | 2025-02-21 11:14 | DVHPN2 ---
Progress Note - Dictate Date Seen: Feb 21, 2025 Medical Necessity Reason Pt with a Central, PICC or Fol: No Subjective PT TRANSFERRED FROM [facility] SECONDARY TO ELEVATED TROPONIN PEAK TROPONIN 110 HX OF HTN GERD TYPE II DM VASCULOPATHY NEPHROPATHY HX OF CAD EPISODE OF CHEST PAIN BUT MORE RIGHT SIDED C 2022 MILD DISEASE ECHO LVH EF >60% NO SEGMENTAL WALL MOTION ABNL UTI WITH BLADDER WALL THICKENING BY CT vital signs Vital Sign Date Time Temp Pulse Resp B/P (MAP) Pulse Ox O2 Delivery O2 Flow Rate FiO2 02/21/25 09:00 98.3 76 18 138/83 (101) 100 98.3 02/20/25 20:00 Room Air* 0 21 Total Intake and Output 02/20/25 02/20/25 02/21/25 15:00 23:00 07:00 Intake Total 50 ml 765 ml 650 ml Output Total 250 ml Balance 50 ml 765 ml 400 ml medications Current Medications Medications Dose Ordered Sig/Ann Route Start Time Stop Time Status Last Admin Dose Admin Ondansetron HCl 4 mg Q6HP PRN IV 02/19/25 04:00 Acetaminophen/ Hydrocodone Bitart 1 tab Q6HPRN PRN PO 02/19/25 04:00 Acetaminophen 650 mg Q6HPRN PRN PO 02/19/25 04:00 02/20/25 05:57 650 MG Pantoprazole Sodium 40 mg DAILY IV 02/19/25 10:00 02/21/25 09:33 40 MG Atorvastatin Calcium 40 mg HS PO 02/19/25 22:00 02/20/25 22:41 40 MG Aspirin 81 mg DAILY PO 02/19/25 10:00 02/21/25 09:31 81 MG Ceftriaxone Sodium 50 ml @ 100 mls/hr DAILY IV 02/20/25 10:00 02/21/25 09:30 100 MLS/HR Nitroglycerin 0.4 mg Q5MINP PRN SL 02/19/25 04:00 Morphine Sulfate 2 mg Q30M PRN IV 02/19/25 04:00 Diagnostic Test (Pha) 1 strip ACHS 02/19/25 07:00 02/21/25 06:02 1 STRIP Insulin Human Regular ACHS SC 02/19/25 07:00 02/20/25 11:47 2 UNITS Dextrose 50 ml UD PRN IV 02/19/25 05:45 Enoxaparin Sodium 40 mg DAILY SC 02/21/25 10:00 02/21/25 09:33 40 MG laboratory and microbiology Laboratory Tests 02/21/25 04:35 Test 02/21/25 04:35 Range/Units Serum Glucose 124 H 74-106 mg/dL Problem List PEAK TROPONIN 110 HX OF HTN GERD TYPE II DM VASCULOPATHY NEPHROPATHY HX OF CAD EPISODE OF CHEST PAIN BUT MORE RIGHT SIDED [facility] 2022 MILD DISEASE ECHO LVH EF >60% NO SEGMENTAL WALL MOTION ABNL UTI WITH BLADDER WALL THICKENING BY CT Assessment/Plan TREATMENT OF HTN DAPT FOR NOW SCHEDULE FOR CARDIOLITE ELEVATED TROPONIN SECONDARY TO DIASTOLIC DYSFUNCTION AGGRESSIVE BP MANAGEMENT BETA GERRY ANBULATE PT MAY DC HOME Plan discussed with: Patient STEPHANIE FRANKS MD Feb 21, 2025 11:14
--- NOTE | 2025-02-21 11:30 | DVHPNRES ---
Progress Note Date Seen: Feb 21, 2025 Resident Creating Document: MARCY ALEXANDER RESIDENT Medical Necessity Reason Pt with a Central, PICC or Fol: No Subjective Review of Systems DARRON OLIVER is a 79 years old male with a PMH of HTN, type 2 DM, GERD and CAD transferred from [facility] with the chief complaints of progressive chest pain for 2 days prior to admission. Patient reported that he has a long history of chest pain for 7 months that has progressed from occasional more frequent episodes. The pain is located right side which is pressure-like radiating to right shoulder and neck associated with chest soreness. Episodes began without any specific precipitating activity and last for few hours but no significant aggravating/relieving factors. Patient denies difficulty breathing, but admits having mild SOB on exertion attributed to suspected COPD. Patient reported he also having bad reflux. on arrival to [facility] troponins were elevated 129 > 119 > 114 > 106> 72 >52 and BNP was 205. Initial EKG showed T-wave changes but no significant ST elevation/depression. Reviewed old charts, the patient underwent left heart catheterization in December 2022, diagnosed with a mild CAD with 30% stenosis in mid RCA and mid LAD with a LVEF 70% 02/21/25: Seen and examine at bedside, denies any chest pain, any acute complaints, metoprolol and losartan started, pending stress test on sunday Objective vital signs Vital Sign Date Time Temp Pulse Resp B/P (MAP) Pulse Ox O2 Delivery O2 Flow Rate FiO2 02/21/25 09:00 98.3 76 18 138/83 (101) 100 98.3 02/20/25 20:00 Room Air* 0 21 Total Intake and Output 02/20/25 02/20/25 02/21/25 15:00 23:00 07:00 Intake Total 50 ml 765 ml 650 ml Output Total 250 ml Balance 50 ml 765 ml 400 ml medications Current Medications Medications Dose Ordered Sig/Ann Route Start Time Stop Time Status Last Admin Dose Admin Ondansetron HCl 4 mg Q6HP PRN IV 02/19/25 04:00 Acetaminophen/ Hydrocodone Bitart 1 tab Q6HPRN PRN PO 02/19/25 04:00 Acetaminophen 650 mg Q6HPRN PRN PO 02/19/25 04:00 02/20/25 05:57 650 MG Pantoprazole Sodium 40 mg DAILY IV 02/19/25 10:00 02/21/25 09:33 40 MG Atorvastatin Calcium 40 mg HS PO 02/19/25 22:00 02/20/25 22:41 40 MG Aspirin 81 mg DAILY PO 02/19/25 10:00 02/21/25 09:31 81 MG Ceftriaxone Sodium 50 ml @ 100 mls/hr DAILY IV 02/20/25 10:00 02/21/25 09:30 100 MLS/HR Nitroglycerin 0.4 mg Q5MINP PRN SL 02/19/25 04:00 Morphine Sulfate 2 mg Q30M PRN IV 02/19/25 04:00 Diagnostic Test (Pha) 1 strip ACHS 02/19/25 07:00 02/21/25 06:02 1 STRIP Insulin Human Regular ACHS SC 02/19/25 07:00 02/20/25 11:47 2 UNITS Dextrose 50 ml UD PRN IV 02/19/25 05:45 Enoxaparin Sodium 40 mg DAILY SC 02/21/25 10:00 02/21/25 09:33 40 MG Metoprolol Succinate 50 mg DAILY PO 02/22/25 10:00 UNV Examination Pt is lying on bed General Appearance: Alert, Oriented X3, Cooperative, Not in acute distress HEENT: Atraumatic, Mucous membranes moist/pink Respiratory: Clear to auscultation, Normal air movement, Wheezing on expiration Cardiovascular: Regular rate, Normal S1, Normal S2, No murmurs Abdominal: Active bowel sounds, Soft, no distention, no tenderness Extremities: No edema, Normal pulses, No tenderness/swelling Skin: No Significant rash, except past surgical scars Neuro: Normal speech, sensorimotor deficits none Psych/Mental Status: Mental status NL, Mood NL Nurse was there as industrial truck operator during examination laboratory and microbiology Laboratory Tests 02/21/25 04:35 Test 02/21/25 04:35 Range/Units Serum Glucose 124 H 74-106 mg/dL Microbiology Date/Time Source Procedure Growth Status 02/18/25 23:55 Voided Urine Urine Culture - Final Escherichia coli Complete 02/18/25 23:39 Blood Blood Culture - Preliminary NO GROWTH AFTER 48 HOURS OF INCUBATION. Resulted Problem List/Assessment/Plan Problem List/Assessment/Plan Chest pain rule out ACS Rule out progressive CAD Rule out structural heart disease NSTEMI: Troponins trending up Hypertension Hyperlipidemia Acute complicated UTI Plan/Recommendation We will continue with the following plan/recommendations (): Echocardiogram to evaluate cardiac function Chest pain protocol HEART score: 5-6 points (Moderate score) Aspirin Lipid lowering agent BP control: losartan and BB Ceftriaxone IV per primary team We will proceed with stress test and scheduled depend upon the availability Discussed with Plan discussed with: Patient, Other (rn) My Orders My Orders Orders - MARCY ALEXANDER Procedure Category Date Status Time Cardiolite Multiple NM 02/20/25 Logged 16:44 Visit Coding Cardiology RES Date of Service: Feb 21, 2025 Billing Provider: STEPHANIE FRANKS MD, MARIA RESIDENT Feb 21, 2025 11:30
[2025-02-21] MEDS: LOSARTAN POTASSIUM 50 MG TAB PO SCH (13:30)
[2025-02-21] MEDS: TAMSULOSIN HYDROCHLORIDE 0.4 MG CAP PO SCH (17:46)
--- NOTE | 2025-02-21 17:50 | DVHPN2 ---
Subjective Overnight events noted. Patient currently denies any chest pain. Changes from previous H/P or p: No Changes Objective Vitals Vital Signs Date Time Temp Pulse Resp B/P (MAP) Pulse Ox O2 Delivery O2 Flow Rate FiO2 02/21/25 13:30 149/78 02/21/25 13:00 98.1 81 16 95 98.1 02/21/25 08:05 Room Air* 0 21 Intake/Output Intake and Output 02/21/25 07:00 Intake Total 1465 ml Output Total 250 ml Balance 1215 ml Intake Oral 1415 ml IV Total 50 ml Output Urine Total 250 ml # Voids 5 Exam HEENT pupils are reactive Neck is supple CV is S1-S2 regular rate and rhythm Respiratory bilateral equal breath sounds. GI positive bowel sounds Extremity no pedal edema [employer]GER [place] no motor deficit. Medications Current Medications Medications Dose Ordered Sig/Ann Route Start Time Stop Time Status Last Admin Dose Admin Ondansetron HCl 4 mg Q6HP PRN IV 02/19/25 04:00 Acetaminophen/ Hydrocodone Bitart 1 tab Q6HPRN PRN PO 02/19/25 04:00 Acetaminophen 650 mg Q6HPRN PRN PO 02/19/25 04:00 02/20/25 05:57 650 MG Pantoprazole Sodium 40 mg DAILY IV 02/19/25 10:00 02/21/25 09:33 40 MG Atorvastatin Calcium 40 mg HS PO 02/19/25 22:00 02/20/25 22:41 40 MG Aspirin 81 mg DAILY PO 02/19/25 10:00 02/21/25 09:31 81 MG Ceftriaxone Sodium 50 ml @ 100 mls/hr DAILY IV 02/20/25 10:00 02/21/25 09:30 100 MLS/HR Nitroglycerin 0.4 mg Q5MINP PRN SL 02/19/25 04:00 Morphine Sulfate 2 mg Q30M PRN IV 02/19/25 04:00 Diagnostic Test (Pha) 1 strip ACHS 02/19/25 07:00 02/21/25 17:46 1 STRIP Insulin Human Regular ACHS SC 02/19/25 07:00 02/21/25 11:57 3 UNITS Dextrose 50 ml UD PRN IV 02/19/25 05:45 Enoxaparin Sodium 40 mg DAILY SC 02/21/25 10:00 02/21/25 09:33 40 MG Metoprolol Succinate 50 mg DAILY PO 02/22/25 10:00 Losartan Potassium 50 mg DAILY PO 02/21/25 12:30 02/21/25 13:30 50 MG Donepezil HCl 5 mg HS PO 02/21/25 22:00 Finasteride 5 mg DAILY PO 02/22/25 10:00 Tamsulosin HCl 0.4 mg QPM PO 02/21/25 18:00 02/21/25 17:46 0.4 MG Laboratory Results Laboratory Tests 02/21/25 04:35 Chemistry Test 02/21/25 04:35 Albumin 3.9 g/dL (3.2-4.8) Calcium Level 8.9 mg/dL (8.7-10.4) Total Protein 6.9 g/dL (5.7-8.2) LFT Test 02/21/25 04:35 Alanine Aminotransferase (ALT) 67 U/L (7-40) H Alkaline Phosphatase 79 U/L (46-116) Aspartate Amino Transferase (AST) 209 U/L (13-40) H Total Bilirubin 0.3 mg/dL (0.2-1.0) Urinalysis Test 02/18/25 23:55 Urine Color Light-orange (Yellow) Urine Clarity Turbid (Clear) H Urine pH 5.5 (5.0-9.0) Urine Specific [place] 1.023 (1.001-1.035) Urine Protein 1+ (Negative) H Urine Ketones Negative (Negative) Urine Blood 3+ /uL (Negative) H Urine Nitrite Negative (Negative) Urine Bilirubin Negative (Negative) Urine Urobilinogen Normal mg/dL (Negative) Urine Leukocyte Esterase 2+ /uL (Negative) Urine RBC 1 /hpf (0 - 3) Urine Microscopic WBC 114 /HPF (0-3) H Urine Squamous Epithelial Cells Few /hpf (<5) Urine Bacteria Many /hpf (None Seen) H Urine Mucus Few (None Seen) Urine Glucose Normal mg/dL (Normal) Microbiology Microbiology Date/Time Source Procedure Growth Status 02/18/25 23:55 Voided Urine Urine Culture - Final Escherichia coli Complete 02/18/25 23:39 Blood Blood Culture - Preliminary NO GROWTH AFTER 48 HOURS OF INCUBATION. Resulted Assessment/Plan Assessment/Plan 79-year-old male with known history of hypertension, diabetes mellitus type 2 who initially presented to the hospital from [facility] with chest pain with elevated troponin found to have 1. Chest pain with elevated troponin suspect NSTEMI type 1 2. Diabetes mellitus type 2 next 3. Hypertension next 4. Transaminitis next 5. Urinary tract infection -2D echo, cardiology consultation, continue current medications. -stress test on Sunday. Plan discussed with: Patient, Spouse My Orders Orders - DEEPA PEREZ MD Procedure Category Date Status Time Donepezil Tablet PHA 02/21/25 In Process (Aricept Tablet) 22:00 Finasteride Tablet PHA 02/22/25 In Process (Proscar Tablet) 10:00 Tamsulosin PHA 02/21/25 In Process Hydrochloride (Flomax) 18:00 Date of Service: Feb 21, 2025 Billing Provider: DEEPA PEREZ MD Common Visit Codes: NOT BILLABLE DEEPA PEREZ MD Feb 21, 2025 17:50
[2025-02-21] MEDS: DONEPEZIL HYDROCHLORIDE 5 MG TAB PO SCH (22:00)
[2025-02-22] VITALS (8 sets, daily range): BP systolic 100–163; BP diastolic 55–99; PULSE 71–91; RESP 16–18; TEMP 96.9–98; O2SAT 93–97
[2025-02-22 05:44] LABS: Mean Corpuscular Volume 76.1 fL (80.0-100.0); Nucleated Red Blood Cells % 0.2 %
[2025-02-22 05:46] LABS: Hematocrit 41.7 % (41.0-53.0); Hemoglobin 14.0 g/dL (13.5-17.5); Mean Corpuscular Hemoglobin 25.5 pg (28.0-32.0)
[2025-02-22 05:57] LABS: Albumin 4.1 g/dL (3.2-4.8); Alkaline Phosphatase 86 U/L (46-116); Anion Gap 0 (5-15); BUN/Creatinine Ratio 13.8 (10.0-20.0); Bilirubin, Total 0.4 mg/dL (0.2-1.0); Blood Urea Nitrogen 13 mg/dL (9-23); Calcium 9.0 mg/dL (8.7-10.4); Carbon Dioxide 29 mmol/L (20-31); Potassium 4.1 mmol/L (3.5-5.1); Sodium 144 mmol/L (136-145); Total Protein 7.2 g/dL (5.7-8.2)
[2025-02-22 06:21] LABS: Alanine Aminotransferase 71 U/L (7-40); Chloride 115 mmol/L (98-107); Glucose 124 mg/dL (74-106)
[2025-02-22] MEDS: FINASTERIDE 5 MG TAB PO SCH (09:52)
[2025-02-22] MEDS: METOPROLOL SUCCINATE XL 50 MG TAB PO SCH (09:52)
--- NOTE | 2025-02-22 12:14 | DVHPN2 ---
Progress Note - Dictate Date Seen: Feb 22, 2025 Medical Necessity Reason Pt with a Central, PICC or Fol: No Subjective PT TRANSFERRED FROM [facility] SECONDARY TO ELEVATED TROPONIN PEAK TROPONIN 110 HX OF HTN GERD TYPE II DM VASCULOPATHY NEPHROPATHY HX OF CAD EPISODE OF CHEST PAIN BUT MORE RIGHT SIDED C 2022 MILD DISEASE ECHO LVH EF >60% NO SEGMENTAL WALL MOTION ABNL UTI WITH BLADDER WALL THICKENING BY CT vital signs Vital Sign Date Time Temp Pulse Resp B/P (MAP) Pulse Ox O2 Delivery O2 Flow Rate FiO2 02/22/25 09:52 149/85 02/22/25 09:52 82 02/22/25 09:00 97.6 16 97 97.6 02/21/25 20:00 Room Air* 0 21 Total Intake and Output 02/21/25 02/21/25 02/22/25 14:59 22:59 06:59 Intake Total 50 ml 1200 ml 150 ml Balance 50 ml 1200 ml 150 ml medications Current Medications Medications Dose Ordered Sig/Ann Route Start Time Stop Time Status Last Admin Dose Admin Ondansetron HCl 4 mg Q6HP PRN IV 02/19/25 04:00 Acetaminophen/ Hydrocodone Bitart 1 tab Q6HPRN PRN PO 02/19/25 04:00 Acetaminophen 650 mg Q6HPRN PRN PO 02/19/25 04:00 02/20/25 05:57 650 MG Pantoprazole Sodium 40 mg DAILY IV 02/19/25 10:00 02/22/25 09:51 40 MG Atorvastatin Calcium 40 mg HS PO 02/19/25 22:00 02/21/25 21:30 40 MG Aspirin 81 mg DAILY PO 02/19/25 10:00 02/22/25 09:51 81 MG Ceftriaxone Sodium 50 ml @ 100 mls/hr DAILY IV 02/20/25 10:00 02/22/25 09:51 100 MLS/HR Nitroglycerin 0.4 mg Q5MINP PRN SL 02/19/25 04:00 Morphine Sulfate 2 mg Q30M PRN IV 02/19/25 04:00 Diagnostic Test (Pha) 1 strip ACHS 02/19/25 07:00 02/22/25 10:58 1 STRIP Insulin Human Regular ACHS SC 02/19/25 07:00 02/22/25 11:04 2 UNITS Dextrose 50 ml UD PRN IV 02/19/25 05:45 Enoxaparin Sodium 40 mg DAILY SC 02/21/25 10:00 02/21/25 09:33 40 MG Metoprolol Succinate 50 mg DAILY PO 02/22/25 10:00 02/22/25 09:52 50 MG Losartan Potassium 50 mg DAILY PO 02/21/25 12:30 02/22/25 09:52 50 MG Donepezil HCl 5 mg HS PO 02/21/25 22:00 Finasteride 5 mg DAILY PO 02/22/25 10:00 02/22/25 09:52 5 MG Tamsulosin HCl 0.4 mg QPM PO 02/21/25 18:00 02/21/25 17:46 0.4 MG laboratory and microbiology Laboratory Tests 02/22/25 05:11 Test 02/22/25 05:11 Range/Units Serum Glucose 124 H 74-106 mg/dL Problem List PEAK TROPONIN 110 HX OF HTN GERD TYPE II DM VASCULOPATHY NEPHROPATHY HX OF CAD EPISODE OF CHEST PAIN BUT MORE RIGHT SIDED [facility] 2022 MILD DISEASE ECHO LVH EF >60% NO SEGMENTAL WALL MOTION ABNL UTI WITH BLADDER WALL THICKENING BY CT Assessment/Plan TREATMENT OF HTN DAPT FOR NOW SCHEDULE FOR CARDIOLITE OUTPT ELEVATED TROPONIN SECONDARY TO DIASTOLIC DYSFUNCTION AGGRESSIVE BP MANAGEMENT BETA GERRY ANBULATE PT MAY DC HOME Plan discussed with: Patient STEPHANIE FRANKS MD Feb 22, 2025 12:14
--- NOTE | 2025-02-22 13:58 | DVHPN2 ---
Progress Note Date Seen: Feb 22, 2025 Resident Creating Document: YASMINE REAL RESIDENT Medical Necessity Reason Pt with a Central, PICC or Fol: No Subjective Review of Systems Patient seen and examined at the bedside. Patient reported no chest pain at this time and rest of ROS negative. Patient reports: Feels better Objective vital signs Vital Sign Date Time Temp Pulse Resp B/P (MAP) Pulse Ox O2 Delivery O2 Flow Rate FiO2 02/22/25 13:00 97.8 76 16 131/83 (99) 96 97.8 02/22/25 08:05 Room Air* 0 21 Total Intake and Output 02/21/25 02/21/25 02/22/25 15:00 23:00 07:00 Intake Total 50 ml 1200 ml 150 ml Balance 50 ml 1200 ml 150 ml medications Current Medications Medications Dose Ordered Sig/Ann Route Start Time Stop Time Status Last Admin Dose Admin Ondansetron HCl 4 mg Q6HP PRN IV 02/19/25 04:00 Acetaminophen/ Hydrocodone Bitart 1 tab Q6HPRN PRN PO 02/19/25 04:00 Acetaminophen 650 mg Q6HPRN PRN PO 02/19/25 04:00 02/20/25 05:57 650 MG Pantoprazole Sodium 40 mg DAILY IV 02/19/25 10:00 02/22/25 09:51 40 MG Atorvastatin Calcium 40 mg HS PO 02/19/25 22:00 02/21/25 21:30 40 MG Aspirin 81 mg DAILY PO 02/19/25 10:00 02/22/25 09:51 81 MG Ceftriaxone Sodium 50 ml @ 100 mls/hr DAILY IV 02/20/25 10:00 02/22/25 09:51 100 MLS/HR Nitroglycerin 0.4 mg Q5MINP PRN SL 02/19/25 04:00 Morphine Sulfate 2 mg Q30M PRN IV 02/19/25 04:00 Diagnostic Test (Pha) 1 strip ACHS 02/19/25 07:00 02/22/25 10:58 1 STRIP Insulin Human Regular ACHS SC 02/19/25 07:00 02/22/25 11:04 2 UNITS Dextrose 50 ml UD PRN IV 02/19/25 05:45 Enoxaparin Sodium 40 mg DAILY SC 02/21/25 10:00 02/21/25 09:33 40 MG Metoprolol Succinate 50 mg DAILY PO 02/22/25 10:00 02/22/25 09:52 50 MG Losartan Potassium 50 mg DAILY PO 02/21/25 12:30 02/22/25 09:52 50 MG Donepezil HCl 5 mg HS PO 02/21/25 22:00 Finasteride 5 mg DAILY PO 02/22/25 10:00 02/22/25 09:52 5 MG Tamsulosin HCl 0.4 mg QPM PO 02/21/25 18:00 02/21/25 17:46 0.4 MG Examination Pt is lying on bed General Appearance: Alert, Oriented X3, Cooperative, Not in acute distress HEENT: Atraumatic, Mucous membranes moist/pink Respiratory: Clear to auscultation, Normal air movement, Wheezing on expiration Cardiovascular: Regular rate, Normal S1, Normal S2, No murmurs Abdominal: Active bowel sounds, Soft, no distention, no tenderness Extremities: No edema, Normal pulses, No tenderness/swelling Skin: No Significant rash, except past surgical scars Neuro: Normal speech, sensorimotor deficits none Psych/Mental Status: Mental status NL, Mood NL Nurse was there as commutator tester during examination laboratory and microbiology Laboratory Tests 02/22/25 05:11 Test 02/22/25 05:11 Range/Units Serum Glucose 124 H 74-106 mg/dL Microbiology Date/Time Source Procedure Growth Status 02/18/25 23:55 Voided Urine Urine Culture - Final Escherichia coli Complete 02/18/25 23:39 Blood Blood Culture - Preliminary NO GROWTH AFTER 72 HOURS OF INCUBATION. Resulted Labs and/or images reviewed: Labs reviewed by me, Image(s) reviewed by me Problem List/Assessment/Plan Problem List/Assessment/Plan Chest pain rule out ACS Rule out progressive CAD Rule out structural heart disease NSTEMI: Troponins trending up Hypertension Hyperlipidemia Acute complicated UTI Plan/Recommendation We will continue with the following plan/recommendations (): Echocardiogram to evaluate cardiac function Chest pain protocol HEART score: 5-6 points (Moderate score) Aspirin Lipid lowering agent BP control: losartan and BB Ceftriaxone IV per primary team We will proceed with stress test and scheduled on Sunday depend upon the availability Plan discussed with: Patient Date of Service: Feb 22, 2025 Billing Provider: STEPHANIE FRANKS MD Common Visit Codes: [id number] CARE 30-74 MIN YASMINE REAL RESIDENT Feb 22, 2025 13:58
--- NOTE | 2025-02-22 16:52 | DVHPN2 ---
Subjective Overnight events noted. Patient currently denies any chest pain. Changes from previous H/P or p: No Changes Objective Vitals Vital Signs Date Time Temp Pulse Resp B/P (MAP) Pulse Ox O2 Delivery O2 Flow Rate FiO2 02/22/25 13:00 97.8 76 16 131/83 (99) 96 97.8 02/22/25 08:05 Room Air* 0 21 Intake/Output Intake and Output 02/22/25 07:00 Intake Total 1400 ml Balance 1400 ml Intake Oral 1350 ml IV Total 50 ml # Voids 6 # Bowel Movements 1 Exam HEENT pupils are reactive Neck is supple CV is S1-S2 regular rate and rhythm Respiratory bilateral equal breath sounds. 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 Medications Current Medications Medications Dose Ordered Sig/Ann Route Start Time Stop Time Status Last Admin Dose Admin Ondansetron HCl 4 mg Q6HP PRN IV 02/19/25 04:00 Acetaminophen/ Hydrocodone Bitart 1 tab Q6HPRN PRN PO 02/19/25 04:00 Acetaminophen 650 mg Q6HPRN PRN PO 02/19/25 04:00 02/20/25 05:57 650 MG Pantoprazole Sodium 40 mg DAILY IV 02/19/25 10:00 02/22/25 09:51 40 MG Atorvastatin Calcium 40 mg HS PO 02/19/25 22:00 02/21/25 21:30 40 MG Aspirin 81 mg DAILY PO 02/19/25 10:00 02/22/25 09:51 81 MG Ceftriaxone Sodium 50 ml @ 100 mls/hr DAILY IV 02/20/25 10:00 02/22/25 09:51 100 MLS/HR Nitroglycerin 0.4 mg Q5MINP PRN SL 02/19/25 04:00 Morphine Sulfate 2 mg Q30M PRN IV 02/19/25 04:00 Diagnostic Test (Pha) 1 strip ACHS 02/19/25 07:00 02/22/25 10:58 1 STRIP Insulin Human Regular ACHS SC 02/19/25 07:00 02/22/25 11:04 2 UNITS Dextrose 50 ml UD PRN IV 02/19/25 05:45 Enoxaparin Sodium 40 mg DAILY SC 02/21/25 10:00 02/21/25 09:33 40 MG Metoprolol Succinate 50 mg DAILY PO 02/22/25 10:00 02/22/25 09:52 50 MG Losartan Potassium 50 mg DAILY PO 02/21/25 12:30 02/22/25 09:52 50 MG Donepezil HCl 5 mg HS PO 02/21/25 22:00 Finasteride 5 mg DAILY PO 02/22/25 10:00 02/22/25 09:52 5 MG Tamsulosin HCl 0.4 mg QPM PO 02/21/25 18:00 02/21/25 17:46 0.4 MG Laboratory Results Laboratory Tests 02/22/25 05:11 Chemistry Test 02/22/25 05:11 Albumin 4.1 g/dL (3.2-4.8) Calcium Level 9.0 mg/dL (8.7-10.4) Total Protein 7.2 g/dL (5.7-8.2) LFT Test 02/22/25 05:11 Alanine Aminotransferase (ALT) 71 U/L (7-40) H Alkaline Phosphatase 86 U/L (46-116) Aspartate Amino Transferase (AST) 186 U/L (13-40) H Total Bilirubin 0.4 mg/dL (0.2-1.0) Urinalysis Test 02/18/25 23:55 Urine Color Light-orange (Yellow) Urine Clarity Turbid (Clear) H Urine pH 5.5 (5.0-9.0) Urine Specific [place] 1.023 (1.001-1.035) Urine Protein 1+ (Negative) H Urine Ketones Negative (Negative) Urine Blood 3+ /uL (Negative) H Urine Nitrite Negative (Negative) Urine Bilirubin Negative (Negative) Urine Urobilinogen Normal mg/dL (Negative) Urine Leukocyte Esterase 2+ /uL (Negative) Urine RBC 1 /hpf (0 - 3) Urine Microscopic WBC 114 /HPF (0-3) H Urine Squamous Epithelial Cells Few /hpf (<5) Urine Bacteria Many /hpf (None Seen) H Urine Mucus Few (None Seen) Urine Glucose Normal mg/dL (Normal) Microbiology Microbiology Date/Time Source Procedure Growth Status 02/18/25 23:55 Voided Urine Urine Culture - Final Escherichia coli Complete 02/18/25 23:39 Blood Blood Culture - Preliminary NO GROWTH AFTER 72 HOURS OF INCUBATION. Resulted Assessment/Plan Assessment/Plan 79-year-old male with known history of hypertension, diabetes mellitus type 2 who initially presented to the hospital from [facility] with chest pain with elevated troponin found to have 1. Chest pain with elevated troponin suspect NSTEMI type 1 2. Diabetes mellitus type 2 next 3. Hypertension next 4. Transaminitis next 5. Urinary tract infection -2D echo, cardiology consultation, continue current medications. -stress test on Sunday. Plan discussed with: Patient Date of Service: Feb 22, 2025 Billing Provider: DEEPA PEREZ MD Common Visit Codes: NOT BILLABLE DEEPA PEREZ MD Feb 22, 2025 16:52
[2025-02-23] VITALS (7 sets, daily range): BP systolic 152–163; BP diastolic 82–94; PULSE 66–87; RESP 18–20; TEMP 97.3–98.3; O2SAT 95–97
[2025-02-23] MEDS: REGADENOSON 0.4 MG/5 ML SYRG IV ONE ×2 (08:55→09:09)
--- NOTE | 2025-02-23 10:42 | DVHSR ---
APPROVED REPORT EXAM: Two-dimensional and M-mode echocardiogram with Doppler and color Doppler. Blood Pressure: 130/74 mmHg INDICATION Chest Pain NSTEMI RISK FACTORS Obesity: Height: 6'0, Weight: 207 Smoking: DIMENSIONS LVDd 3.6 (3.8-5.7cm) LA (2D) 4.3 (1.9-4.0cm) Aortic Root 3.3 (2.0-3.7cm) LVDs 2.5 (2.5-4.0cm) LA (MM) (1.9-4.0cm) Aortic Cusp Exc 2.1 (1.5-2.0cm) EF (%) 58.9 (55-70%) Rt. Atrium 3.9 (1.9-4.0cm) Asc. Aorta cm IVSd 0.9 (0.7-1.1cm) RV (D) 4.7 (1.8-2.4cm) PWd 1.0 (0.7-1.1cm) Mitral Valve Mitral Mitral Stenosis E wave 0.58m/s MV Mean GR. mmHg A wave 0.77m/s MV Peak GR. 47mmHg E/A ratio 0.8 2D MVA cm2 DECEL Time 272ms PRESS 1/2 Time ms Aortic Valve Aortic Valve Aortic Stenosis V1 0.96m/s AO Mean GR. 2mmHg V2 1.06m/s AO Peak GR. 4mmHg LVOT Diameter 2.3 (1.8-2.4cm) Doppler LACEY 3.76cm2 Pulmonic Valve V2 0.79m/s Tricuspid Valve TR Velocity 2.36m/s RVSP 29mmHg Other Information Technically limited study due to body habitus. Conclusion lvef 55% normal rv function normal atria no severe valve abnormalities noted trivial effusion of pericardium limited study
--- NOTE | 2025-02-23 11:12 | DVHSR ---
APPROVED REPORT Exam: Nuclear Stress Test BMI: 0 Stress Test Details HR Max Heart Rate (APMHR): 142.669458 bpm Target HR (85% APMHR): 120.272115 bpm BP ECG Stress ECG Conclusion lvef 64% inferior wall fixed defect NM EXAM: Myocardial Perfusion REST/STRESS Imaging Protocol: Rest Tc-99m/Stress Tc-99m 1 day Resting Data Rest SPECT myocardial perfusion imaging was performed in supine position 45 minutes following the intravenous injection of 10.9 mCi of Tc-99m Sestamibi. Time of rest injection: 0800 Time of rest imagin Administration Route: IV Administration Site: Left Hand Pharmacologic Stress Pharmacologic stress test was performed by injecting Regadenoson 0.4 mg IV push followed by the intravenous injection of 30.2 mCi of Tc-99m Sestamibi. Time of stress injection: 0910 Time of stress imagin Administration Route: IV Administration Site: Left Hand Gated Stress SPECT was performed 50 minutes after stress injection. The images were gated to evaluate regional wall motion and calculate left ventricular ejection fraction. Nuclear Conclusion Nuclear Findings: negative for ischemia lvef 64% inferior wall fixed defect
--- NOTE | 2025-02-23 13:26 | DVHPN2 ---
Progress Note - Dictate Date Seen: Feb 23, 2025 Medical Necessity Reason Pt with a Central, PICC or Fol: No Subjective PT TRANSFERRED FROM [facility] SECONDARY TO ELEVATED TROPONIN PEAK TROPONIN 110 HX OF HTN GERD TYPE II DM VASCULOPATHY NEPHROPATHY HX OF CAD EPISODE OF CHEST PAIN BUT MORE RIGHT SIDED C 2022 MILD DISEASE ECHO LVH EF >60% NO SEGMENTAL WALL MOTION ABNL UTI WITH BLADDER WALL THICKENING BY CT vital signs Vital Sign Date Time Temp Pulse Resp B/P (MAP) Pulse Ox O2 Delivery O2 Flow Rate FiO2 02/23/25 10:22 91 141/84 02/23/25 08:30 98.0 20 95 98.0 02/23/25 08:00 Room Air* 0 21 Total Intake and Output 02/22/25 02/22/25 02/23/25 15:00 23:00 07:00 Intake Total 600 ml 600 ml 475 ml Balance 600 ml 600 ml 475 ml medications Current Medications Medications Dose Ordered Sig/Ann Route Start Time Stop Time Status Last Admin Dose Admin Ondansetron HCl 4 mg Q6HP PRN IV 02/19/25 04:00 Acetaminophen/ Hydrocodone Bitart 1 tab Q6HPRN PRN PO 02/19/25 04:00 Acetaminophen 650 mg Q6HPRN PRN PO 02/19/25 04:00 02/20/25 05:57 650 MG Pantoprazole Sodium 40 mg DAILY IV 02/19/25 10:00 02/23/25 10:19 40 MG Atorvastatin Calcium 40 mg HS PO 02/19/25 22:00 02/22/25 21:24 40 MG Aspirin 81 mg DAILY PO 02/19/25 10:00 02/23/25 10:20 81 MG Ceftriaxone Sodium 50 ml @ 100 mls/hr DAILY IV 02/20/25 10:00 02/23/25 10:19 100 MLS/HR Nitroglycerin 0.4 mg Q5MINP PRN SL 02/19/25 04:00 Morphine Sulfate 2 mg Q30M PRN IV 02/19/25 04:00 Diagnostic Test (Pha) 1 strip ACHS 02/19/25 07:00 02/23/25 11:39 1 STRIP Insulin Human Regular ACHS SC 02/19/25 07:00 02/23/25 11:40 2 UNITS Dextrose 50 ml UD PRN IV 02/19/25 05:45 Enoxaparin Sodium 40 mg DAILY SC 02/21/25 10:00 02/21/25 09:33 40 MG Metoprolol Succinate 50 mg DAILY PO 02/22/25 10:00 02/23/25 10:22 50 MG Losartan Potassium 50 mg DAILY PO 02/21/25 12:30 02/23/25 10:21 50 MG Donepezil HCl 5 mg HS PO 02/21/25 22:00 Finasteride 5 mg DAILY PO 02/22/25 10:00 02/23/25 10:20 5 MG Tamsulosin HCl 0.4 mg QPM PO 02/21/25 18:00 02/22/25 17:16 0.4 MG laboratory and microbiology Laboratory Tests 02/22/25 05:11 Test 02/22/25 05:11 Range/Units Serum Glucose 124 H 74-106 mg/dL Problem List PEAK TROPONIN 110 HX OF HTN GERD TYPE II DM VASCULOPATHY NEPHROPATHY HX OF CAD EPISODE OF CHEST PAIN BUT MORE RIGHT SIDED [facility] 2022 MILD DISEASE ECHO LVH EF >60% NO SEGMENTAL WALL MOTION ABNL UTI WITH BLADDER WALL THICKENING BY CT Assessment/Plan TREATMENT OF HTN DAPT FOR NOW SCHEDULE FOR CARDIOLITE OUTPT ELEVATED TROPONIN SECONDARY TO DIASTOLIC DYSFUNCTION AGGRESSIVE BP MANAGEMENT BETA GERRY ANBULATE PT MAY DC HOME Plan discussed with: Patient STEPHANIE FRANKS MD Feb 23, 2025 13:26
--- NOTE | 2025-02-23 16:01 | DVHPN2 ---
Progress Note Date Seen: Feb 23, 2025 Resident Creating Document: YASMINE REAL RESIDENT Medical Necessity Reason Pt with a Central, PICC or Fol: No Subjective Review of Systems Patient seen and examined at the bedside. Patient is reported no new complaints at this time and chest pain has resolved. Rest of ROS is negative Objective vital signs Vital Sign Date Time Temp Pulse Resp B/P (MAP) Pulse Ox O2 Delivery O2 Flow Rate FiO2 02/23/25 13:00 97.3 87 20 159/92 (114) 96 97.3 02/23/25 08:00 Room Air* 0 21 Total Intake and Output 02/22/25 02/22/25 02/23/25 15:00 23:00 07:00 Intake Total 600 ml 600 ml 475 ml Balance 600 ml 600 ml 475 ml medications Current Medications Medications Dose Ordered Sig/Ann Route Start Time Stop Time Status Last Admin Dose Admin Ondansetron HCl 4 mg Q6HP PRN IV 02/19/25 04:00 Acetaminophen/ Hydrocodone Bitart 1 tab Q6HPRN PRN PO 02/19/25 04:00 Acetaminophen 650 mg Q6HPRN PRN PO 02/19/25 04:00 02/23/25 13:38 650 MG Pantoprazole Sodium 40 mg DAILY IV 02/19/25 10:00 02/23/25 10:19 40 MG Atorvastatin Calcium 40 mg HS PO 02/19/25 22:00 02/22/25 21:24 40 MG Aspirin 81 mg DAILY PO 02/19/25 10:00 02/23/25 10:20 81 MG Ceftriaxone Sodium 50 ml @ 100 mls/hr DAILY IV 02/20/25 10:00 02/23/25 10:19 100 MLS/HR Nitroglycerin 0.4 mg Q5MINP PRN SL 02/19/25 04:00 Morphine Sulfate 2 mg Q30M PRN IV 02/19/25 04:00 Diagnostic Test (Pha) 1 strip ACHS 02/19/25 07:00 02/23/25 11:39 1 STRIP Insulin Human Regular ACHS SC 02/19/25 07:00 02/23/25 11:40 2 UNITS Dextrose 50 ml UD PRN IV 02/19/25 05:45 Enoxaparin Sodium 40 mg DAILY SC 02/21/25 10:00 02/21/25 09:33 40 MG Metoprolol Succinate 50 mg DAILY PO 02/22/25 10:00 02/23/25 10:22 50 MG Losartan Potassium 50 mg DAILY PO 02/21/25 12:30 02/23/25 10:21 50 MG Donepezil HCl 5 mg HS PO 02/21/25 22:00 Finasteride 5 mg DAILY PO 02/22/25 10:00 02/23/25 10:20 5 MG Tamsulosin HCl 0.4 mg QPM PO 02/21/25 18:00 02/22/25 17:16 0.4 MG Examination Pt is lying on bed General Appearance: Alert, Oriented X3, Cooperative, Not in acute distress HEENT: Atraumatic, Mucous membranes moist/pink Respiratory: Clear to auscultation, Normal air movement, No added sounds Cardiovascular: Regular rate, Normal S1, Normal S2, No murmurs Abdominal: Active bowel sounds, Soft, no distention, no tenderness Extremities: No edema, Normal pulses, No tenderness/swelling Skin: No Significant rash, except past surgical scars Neuro: Normal speech, sensorimotor deficits none Psych/Mental Status: Mental status NL, Mood NL Nurse was there as gravity manager during examination laboratory and microbiology Laboratory Tests 02/22/25 05:11 Test 02/22/25 05:11 Range/Units Serum Glucose 124 H 74-106 mg/dL Microbiology Date/Time Source Procedure Growth Status 02/18/25 23:55 Voided Urine Urine Culture - Final Escherichia coli Complete 02/18/25 23:39 Blood Blood Culture - Preliminary NO GROWTH AFTER 72 HOURS OF INCUBATION. Resulted Labs and/or images reviewed: Labs reviewed by me, Image(s) reviewed by me Problem List/Assessment/Plan Problem List/Assessment/Plan Chest pain ruled out ACS Possible unstable angina Ruled out progressive CAD Ruled out structural heart disease NSTEMI: Troponins trending up Hypertension Hyperlipidemia Acute complicated UTI Plan/Recommendation We will continue with the following plan/recommendations (): Echocardiogram LVH, EF more than 60%, no segmental wall motion abnormality Chest pain protocol HEART score: 5-6 points (Moderate score) Nuclear stress test showed findings negative for ischemia, LVEF 64% and inferior wall fixed defect Aggressive risk and blood pressure management Aspirin Lipid lowering agent BP control: losartan and BB IV abx per primary teaM Case discussed with the Dr. Xavier. Plan discussed with: Patient Dietary Evaluation Review Comments: CCHO-60 Cardiac Diet Expected Outcomes/Goals: controlled DM, grasual wt loss Date of Service: Feb 23, 2025 Billing Provider: STEPHANIE FRANKS MD Common Visit Codes: [id number] CARE 30-74 MIN YASMINE REAL RESIDENT Feb 23, 2025 16:01
[2025-02-23] MEDS ORDERED: METO-6 PO (16:17)
[2025-02-23] MEDS ORDERED: LOSA-534 PO (16:17)
[2025-02-23] MEDS ORDERED: ASPI-325 PO (16:17)
[2025-02-23] MEDS ORDERED: CEFD300C2 PO (16:17)
--- NOTE | 2025-02-23 16:20 | DVHDS2 ---
Discharge Summary Date of Admission Feb 19, 2025 at 03:55 Date of Discharge: Feb 23, 2025 Labs/Diagnostic Data: Laboratory Results Test 02/23/25 11:33 02/22/25 05:11 02/20/25 05:41 02/19/25 21:59 POC Glucose 148 mg/dl (70-106) White Blood Count 4.9 10^3/uL (4.4-10.8) Red Blood Count 5.48 10^6/uL (4.5-5.90) Hemoglobin 14.0 g/dL (13.5-17.5) Hematocrit 41.7 % (41.0-53.0) Mean Corpuscular Volume 76.1 fL (80.0-100.0) Mean Corpuscular Hemoglobin 25.5 pg (28.0-32.0) Mean Corpuscular Hemoglobin Concent 33.5 g/dL (32.0-36.0) Red Cell Distribution Width 16.0 % (11.8-14.3) Platelet Count 179 10^3/uL (140-450) Mean Platelet Volume 9.0 fL (6.9-10.8) Neutrophils (%) (Auto) 65.2 % (37.0-80.0) Lymphocytes (%) (Auto) 22.6 % (10.0-50.0) Monocytes (%) (Auto) 9.3 % (0.0-12.0) Eosinophils (%) (Auto) 2.7 % (0.0-7.0) Basophils (%) (Auto) 0.2 % (0.0-2.0) Neutrophils # (Auto) 3.2 10 ^3/uL (1.6-8.6) Lymphocytes # (Auto) 1.1 10 ^3/uL (0.4-5.4) Monocytes # (Auto) 0.5 10 ^3/uL (0-1.3) Eosinophils # (Auto) 0.1 10 ^3/uL (0-0.8) Basophils # (Auto) 0 10 ^3/uL (0-0.2) Nucleated Red Blood Cells 0.2 % Sodium Level 144 mmol/L (136-145) Potassium Level 4.1 mmol/L (3.5-5.1) Chloride Level 115 mmol/L (98-107) Carbon Dioxide Level 29 mmol/L (20-31) Anion Gap 0 (5-15) Blood Urea Nitrogen 13 mg/dL (9-23) Creatinine 0.94 mg/dL (0.700-1.30) Glomerular Filtration Rate Calc 83 mL/min (>90) BUN/Creatinine Ratio 13.8 (10.0-20.0) Serum Glucose 124 mg/dL (74-106) Calcium Level 9.0 mg/dL (8.7-10.4) Total Bilirubin 0.4 mg/dL (0.2-1.0) Aspartate Amino Transferase (AST) 186 U/L (13-40) Alanine Aminotransferase (ALT) 71 U/L (7-40) Alkaline Phosphatase 86 U/L (46-116) Total Protein 7.2 g/dL (5.7-8.2) Albumin 4.1 g/dL (3.2-4.8) Magnesium Level 2.3 mg/dL (1.6-2.6) Thyroid Stimulating Hormone (TSH) 1.67 uIU/mL (0.55-4.78) Troponin I High Sensitivity 52 ng/L (</=54) Test 02/19/25 04:26 02/19/25 02:29 02/18/25 23:55 02/18/25 23:27 Hemoglobin A1c 7.1 % A1C (<5.7) B-Type Natriuretic Peptide 205.66 pg/mL (0-100) Triglycerides Level 74 mg/dL (< 150) Cholesterol Level 149 mg/dL (< 200) LDL Cholesterol 92 mg/dL (< 100) HDL Cholesterol 46 mg/dL (40-59) Prothrombin Time 12.2 sec (9.3-11.8) Prothrombin Time INR 1.17 (0.9-1.15) Activated Partial Thromboplast Time 25.1 SEC (24.5-34.5) Urine Color Light-orange (Yellow) Urine Clarity Turbid (Clear) Urine pH 5.5 (5.0-9.0) Urine Specific [place] 1.023 (1.001-1.035) Urine Protein 1+ (Negative) Urine Ketones Negative (Negative) Urine Blood 3+ /uL (Negative) Urine Nitrite Negative (Negative) Urine Bilirubin Negative (Negative) Urine Urobilinogen Normal mg/dL (Negative) Urine Leukocyte Esterase 2+ /uL (Negative) Urine RBC 1 /hpf (0 - 3) Urine Microscopic WBC 114 /HPF (0-3) Urine Squamous Epithelial Cells Few /hpf (<5) Urine Bacteria Many /hpf (None Seen) Urine Mucus Few (None Seen) Urine Glucose Normal mg/dL (Normal) Lactic Acid Level 1.3 mmol/L (0.4-2.0) Other Laboratory Tests 02/22/25 05:11 Brief Hx & Hospital Course: 79-year-old male with known history of hypertension, diabetes mellitus type 2 who initially presented to the hospital from [facility] with chest pain with elevated troponin found to have elevated troponin suspected non-STEMI type 1. Patient underwent stress test which was normal. Patient did fairly well. Patient is being discharged under stable condition. Condition at Discharge: Stable Final Diagnosis/Problems List 79-year-old male with known history of hypertension, diabetes mellitus type 2 who initially presented to the hospital from [facility] with chest pain with elevated troponin found to have 1. Chest pain with elevated troponin suspect NSTEMI type 1 2. Diabetes mellitus type 2 next 3. Hypertension next 4. Transaminitis next 5. Urinary tract infection -2D echo, cardiology consultation, continue current medications. -stress test on Sunday. Discharge Disposition: Home SNF Discharge Will this Physician continue t: No Discharge Instruct/Medications Diet: Cardiac 2g Na,low cholest Diet comment: 1999 ADA diet Activity: No Restrictions, As Tolerated Follow Up/Referral: Please follow up with the PCP in one week Medications: Resume home medications, new prescription as prescribed. New Medications: Cefdinir (Cefdinir) 300 Mg Cap 1 CAP PO BID for 3 Days, #6 CAP Aspirin (Aspirin Low Dose) 81 Mg Tab 81 MG PO DAILY, #30 TAB Losartan Potassium (Losartan Potassium) 50 Mg Tab 50 MG PO DAILY, #30 TAB Metoprolol Succinate (Toprol Xl) 50 Mg Tab 50 MG PO DAILY for 30 Days, #30 TAB Continued Medications: Albuterol Sulfate (Ventolin Mdi) 90 Mcg Ih 90 MCG IN, INHALER Bisoprolol Fumarate (Bisoprolol Fumarate) 5 Mg Tab 10 MG PO DAILY, TAB Donepezil Hydrochloride (Aricept) 5 Mg Tab 5 MG PO, TAB Finasteride (Finasteride) 5 Mg Tab 1 TAB PO DAILY, #30 TAB 11 Refills Loratadine (Claritin) 10 Mg Tab 1 TAB PO DAILY, #30 TAB 5 Refills Metformin HCl (Metformin Hydrochloride) 1,000 Mg Tab 1000 MG PO BID, TAB Metformin Hydrochloride (Metformin Hcl) 500 Mg Tab 500 MG PO IBID for DIABETES for 30 Days, MG Rosuvastatin Calcium (Crestor) 5 Mg Tab 1 TAB PO DAILY, #30 TAB 5 Refills Tamsulosin Hcl (Flomax) 0.4 Mg Cap 1 CAP PO DAILY, #30 CAP 11 Refills Discontinued Medications: Aspirin (Aspirin) 325 Mg Tab 325 MG PO DAILY, MG Losartan Potassium (Losartan Potassium) 25 Mg Tab 25 MG PO BID for htn for 30 Days, MG Losartan Potassium (Cozaar) 100 Mg Tab 1 TAB PO DAILY, #30 TAB 5 Refills Scheduled Aspirin (Aspirin Low Dose), 81 MG PO DAILY Bisoprolol Fumarate (Bisoprolol Fumarate), 10 MG PO DAILY, (Reported) Cefdinir (Cefdinir), 1 CAP PO BID Finasteride (Finasteride), 1 TAB PO DAILY, (Reported) Loratadine (Claritin), 1 TAB PO DAILY, (Reported) Losartan Potassium (Losartan Potassium), 50 MG PO DAILY Metformin HCl (Metformin Hydrochloride), 1,000 MG PO BID, (Reported) Metformin Hydrochloride (Metformin Hcl), 500 MG PO IBID, (Reported) Metoprolol Succinate (Toprol Xl), 50 MG PO DAILY Rosuvastatin Calcium (Crestor), 1 TAB PO DAILY, (Reported) Tamsulosin Hcl (Flomax), 1 CAP PO DAILY, (Reported) Miscellaneous Medications Albuterol Sulfate (Ventolin Mdi), 90 MCG IN, (Reported) Donepezil Hydrochloride (Aricept), 5 MG PO, (Reported) Discontinued Medications Aspirin (Aspirin), 325 MG PO DAILY, (Reported) Losartan Potassium (Losartan Potassium), 25 MG PO BID, (Reported) Losartan Potassium (Cozaar), 1 TAB PO DAILY, (Reported) Discharge Statement: "Patient was advised to return to the ER or call 911 if any headaches, dizziness, shortness of breath, chest pain, abdominal pain, bleeding, fevers, or worsening of medical condition. Patient was counseled about treatment plan, medications, possible side effects, patientverbalized understanding. All questions were answered to the best of my ability. This discharge took greater then 30 minutes in planning, reviewing documentation, counseling the patient, and discussing with other team members." ASSESSMENT ASSESSMENT Assessment 79-year-old male with known history of hypertension, diabetes mellitus type 2 who initially presented to the hospital from [facility] with chest pain with elevated troponin found to have 1. Chest pain with elevated troponin suspect NSTEMI type 1 2. Diabetes mellitus type 2 next 3. Hypertension next 4. Transaminitis next 5. Urinary tract infection -2D echo, cardiology consultation, continue current medications. -stress test on Sunday. Date of Service: Feb 23, 2025 Billing Provider: DEEPA PEREZ MD Common Visit Codes: NOT BILLABLE DEEPA PEREZ MD Feb 23, 2025 16:20
== END 2025-02-23 18:57 | disposition home or self-care (01) | DRG 281 ==
LOC: ER 23:18 → EDBD 23:18 → EDUNIT# 23:18 → OVERFLOW 02-19 03:55 → TELE-CENTR 02-19 05:24
PROVIDERS: ADMIT Internal Medicine; ATTEND Internal Medicine
DX: I21.4 Non-ST elevation (NSTEMI) myocardial infarction (principal); N39.0 Urinary tract infection, site not specified; E11.21 Type 2 diabetes mellitus with diabetic nephropathy; I10 Essential (primary) hypertension; K21.9 Gastro-esophageal reflux disease without esophagitis; E78.5 Hyperlipidemia, unspecified; R74.01 Elevation of levels of liver transaminase levels; Z79.84 Long term (current) use of oral hypoglycemic drugs; Z87.891 Personal history of nicotine dependence; Z82.49 Family history of ischemic heart disease and other diseases of the circulatory system; Z83.3 Family history of diabetes mellitus; Z79.82 Long term (current) use of aspirin
CPT/HCPCS: 36415; 71045; 74176; 78452; 80053; 80061; 81001; 82962; 83036; 83605; 83735; 83880; 84443; 84484; 85025; 85610; 85730; 87040; 87086; 87088; 87186; 93005; 93017; 93306; 96365; 96375; 97163; 99291; G0378; J1815; J2470